=== PATIENT | female | born 1935 | race Two or more races ===

== ENCOUNTER 2016-09-19 21:53 | Emergency (ER) | payer MEDICARE, OTHER ==
[~2016-09-19] VITALS: Ht 160 cm; Wt 65.8 kg
[~2016-09-19 21:53] MED LIST: ACET-2605 PO; ACET-868 PO; ATOR10TA PO; BISA10SU8 RC; BUPR-96 PO; ESOM40CA PO; INSU3INS6 SQ; LISI40TA4 PO; LOPE2CAP40 PO; MAG30ORA PO; MAGN400O6 PO; POTA20TA83 PO
--- NOTE | 2016-09-19 22:00 | NUR ---
To bed 7 a 81 yo female bibra with c/o high blood pressure. Patient is aaox4, Bp upon arrival is 208/83, HR is 79, saturating well on room air at 99%. Denies headache/nausea/chest pain or any form of discomfort. Nondiaphoretic. healthcare liaison on. Gowned. Initiated comfort measures. Awaiting for er md hardy.
--- NOTE | 2016-09-19 22:02 | NUR ---
Dr Obrien at bedside for eval.
--- NOTE | 2016-09-19 22:17 | NUR ---
started asaline lock on left hand g20.
[2016-09-19] MEDS ORDERED: hydrALAZINE HCL IV 20 MG VIAL ONE ×2 (22:20→22:54)
[2016-09-19] MEDS ORDERED: hydrALAZINE HCL IV 20 MG VIAL IV ONE ×2 (22:30→23:00)
[2016-09-19 22:38] LABS: BASOPHILS # (AUTO) 0.1 /CMM (0.0-0.2); BASOPHILS % (AUTO) 0.6 % (0.0-2.0); EOSINOPHILS # (AUTO) 0.4 /CMM (0.0-0.7); EOSINOPHILS % (AUTO) 4.5 % (0.0-6.0); HEMATOCRIT 30 % (33-45); HEMOGLOBIN 10.1 g/dL (11.5-14.8); LYMPHOCYTES # (AUTO) 1.3 /CMM (0.8-4.8); LYMPHOCYTES % (AUTO) 12.9 % (20.0-44.0); MEAN CORPUSCULAR HEMOGLOBIN 32 PG (26.0-33.0); MEAN CORPUSCULAR HGB CONC 34 g/dl (31.0-36.0); MEAN CORPUSCULAR VOLUME 93 fL (82-100); MONOCYTES # (AUTO) 0.7 /CMM (0.1-1.30); MONOCYTES % (AUTO) 7.5 % (2.0-12.0); NEUTROPHILS # (AUTO) 7.4 /CMM (1.8-8.9); NEUTROPHILS % (AUTO) 74.5 % (43.0-81.0); PLATELET COUNT (AUTO) 186 /CMM (150-450); RDW COEFFICIENT OF VARIATION 14.1 (11.5-15.0); RED BLOOD CELL COUNT(AUTO) 3.19 MIL/uL (4.0-5.2)
[2016-09-19 22:51] LABS: CALCIUM, SERUM 8.8 mg/dL (8.5-10.1); CREATININE 6.1 mg/dL (0.6-1.3); POTASSIUM 4.6 mmol/L (3.5-5.1)
--- NOTE | 2016-09-20 00:13 | NUR ---
[facility] CALLED, ETA 1-1.5 HRS.
--- NOTE | 2016-09-20 01:24 | NUR ---
report given to paramedics for matteo, VSS. No further complaints.
[2016-09-20 01:32] VITALS: BP 170/74
== END 2016-09-20 01:33 ==
LOC: ER 21:55
DX: I10 Essential (primary) hypertension (principal); E11.9 Type 2 diabetes mellitus without complications; K21.9 Gastro-esophageal reflux disease without esophagitis; I12.0 Hypertensive chronic kidney disease with stage 5 chronic kidney disease or end stage renal disease; D64.9 Anemia, unspecified; N18.6 End stage renal disease; G47.30 Sleep apnea, unspecified; Z79.4 Long term (current) use of insulin; Z88.0 Allergy status to penicillin; Z99.2 Dependence on renal dialysis; Z88.6 Allergy status to analgesic agent
CPT/HCPCS: 36415; 80048; 85025; 96374; 96376; 99284; A4606; J0360 ×2; Z7610

== ENCOUNTER 2017-01-03 06:59 | Inpatient (IN) | payer MEDICARE, OTHER ==
[~2017-01-03] VITALS: Ht 162.6 cm; Wt 68.5 kg
[2017-01-03] VITALS (35 sets, daily range): BP systolic 138–232; BP diastolic 62–104
--- NOTE | 2017-01-03 07:00 | NUR ---
PT BIB RA FROM SNF "COUGH/SOB WITH LOW SATS OF 80'S RA"; CRACKLES ON BREATHING TX ELECTRICAL AND RADIO AIRCRAFT MECHANIC. PT DIALYSIS PT SCHEDULED FOR DIALYSIS TODAY. GOWNED PT. PLACED ON MONITOR. AWAITING MD ORDER.
--- NOTE | 2017-01-03 07:05 | NUR ---
PT HAS LEFT WRIST #20 IV ACCESS KINDERGARTNER. PT HAS [facility] SHUNT
--- NOTE | 2017-01-03 07:10 | NUR ---
LFA #18 IV ACCESS BLOOD SAMPLE COLLECTED SENT TO LAB
--- NOTE | 2017-01-03 07:15 | NUR ---
PT ON BIPAP 15 IPAP T=RATE 14 EPAP 5 O2 30 %
[2017-01-03] MEDS ORDERED: NTG 50 MG/D5W250 ML BOTTL 250 ML IV ONE ×2 (07:25→07:30)
[2017-01-03] MEDS ORDERED: FUROSEMIDE 20 MG/2 ML VIAL ONE (07:25)
[2017-01-03] MEDS ORDERED: MORPHINE SULFATE INJ 4 MG/ML DISP.SYRIN ONE (07:25)
[2017-01-03] MEDS ORDERED: FUROSEMIDE 40 MG/4 ML VIAL ONE (07:25)
[2017-01-03 07:26] LABS: BASOPHILS % (AUTO) 0.3 % (0.0-2.0); HEMATOCRIT 33 % (33-45); HEMOGLOBIN 10.9 g/dL (11.5-14.8); LYMPHOCYTES # (AUTO) 0.5 /CMM (0.8-4.8); LYMPHOCYTES % (AUTO) 3.8 % (20.0-44.0); MEAN CORPUSCULAR HEMOGLOBIN 31 PG (26.0-33.0); MEAN CORPUSCULAR HGB CONC 34 g/dl (31.0-36.0); MEAN CORPUSCULAR VOLUME 91 fL (82-100); MONOCYTES # (AUTO) 0.4 /CMM (0.1-1.30); MONOCYTES % (AUTO) 3.1 % (2.0-12.0); NEUTROPHILS # (AUTO) 11.6 /CMM (1.8-8.9); NEUTROPHILS % (AUTO) 92.8 % (43.0-81.0); PLATELET COUNT (AUTO) 209 /CMM (150-450); RDW COEFFICIENT OF VARIATION 16.7 (11.5-15.0); RED BLOOD CELL COUNT(AUTO) 3.57 MIL/uL (4.0-5.2); WHITE BLOOD COUNT (AUTO) 12.6 K/uL (4.3-11.0)
[2017-01-03] MEDS ORDERED: MORPHINE SULFATE INJ 2 MG/ML DISP.SYRIN IV ONE (07:30)
[2017-01-03] MEDS ORDERED: FUROSEMIDE 40 MG/4 ML VIAL IV ONE (07:30)
--- NOTE | 2017-01-03 07:32 | NUR ---
PT REC'D ON NEBULIZER MASK 6L. SOB NOTED. PT PLACED ON BIPAP ON NOTED SETTINGS PER MD REQUEST. ALARMS ARE SET AND AUDIBLE PER POLICY. BIPAP PLUGGED INTO RED OUTLET. AMBU BAG BEDSIDE. WILL CONTINUE TO MONITOR. Addendum: 01/03/17 at 0734 by JN BENJAMIN RT Amended: Links added.
[2017-01-03 07:49] LABS: ALANINE AMINOTRANSFERASE 21 U/L (12-78); ALBUMIN 3.4 g/dL (3.4-5.0); ALKALINE PHOSPHATASE 181 U/L (46-116); ASPARTATE AMINOTRANSFERASE 16 U/L (15-37); B-TYPE NATRIURETIC PEPTIDE 25952 PG/ML (0-125); BILIRUBIN,DIRECT 0.2 mg/dL (0.0-0.2); BILIRUBIN,TOTAL 0.6 mg/dL (0.2-1.0); CARBON DIOXIDE 25 mmol/L (21-32); CHLORIDE 103 mmol/L (98-107); CREATININE 6.2 mg/dL (0.6-1.3); GLUCOSE 250 mg/dL (74-106); SODIUM SERUM 136 mmol/L (136-145); TOTAL PROTEIN, SERUM 7.4 g/dL (6.4-8.2); UREA NITROGEN, BLOOD 44 mg/dL (7-18)
[2017-01-03 07:53] LABS: POTASSIUM 7.1 mmol/L (3.5-5.1)
[2017-01-03 08:01] LABS: ABG BASE EXCESS -3.3 mmol/L; ABG OXYGEN SATURATION 95.9 % (92.0-98.5); ABG PCO2 39.2 mmHg (35.0-45.0); ABG PH 7.363 (7.350-7.450); ABG PO2 91.9 mmHg (75.0-100.0); AaDO2 75.9 mmHg; MetHb 0.1 % (0.0-1.5); O2Hb 94.8 % (94.0-97.0); SITE, ABG Right Radial; VENT MODE, BG BIPAP 15/5 RR14 30%
--- NOTE | 2017-01-03 08:40 | NUR ---
DR PATEL ADMITTING MD AT BEDSIDE SEEING PT
--- NOTE | 2017-01-03 08:47 | NUR ---
PAGED DR QUEZADA FOR CONSULT
[2017-01-03] MEDS ORDERED: LISI10TA5 PO (09:06)
[2017-01-03] MEDS ORDERED: CALC0.253 PO (09:06)
[2017-01-03] MEDS ORDERED: ISOS30TA6 PO (09:06)
[2017-01-03] MEDS ORDERED: HYDR-4077 PO (09:06)
[2017-01-03] MEDS ORDERED: LOSA50TA21 PO (09:06)
[2017-01-03] MEDS ORDERED: INSU100I14 SQ (09:06)
[2017-01-03] MEDS ORDERED: NAPR220T66 PO (09:06)
[2017-01-03] MEDS ORDERED: SEVE800T8 PO (09:06)
--- NOTE | 2017-01-03 09:59 | NUR ---
GAVE REPORT TO CHAS MANRIQUEZ ICU ROOM [address] PATEL / DR QUEZADA. TRANSFER VIA ACLS PROTOCOL
[2017-01-03] MEDS ORDERED: ONDANSETRON HCL/PF 4 MG/2 ML VIAL IVP PRN (10:00)
[2017-01-03] MEDS ORDERED: MAG HYDROX/AL HYDROX/SIMETH 30 ML UDC PO PRN (10:00)
[2017-01-03] MEDS ORDERED: HYDROCODONE/APAP 5/325MG 1 EACH TABLET PO PRN (10:00)
[2017-01-03] MEDS ORDERED: INSULIN REGULAR, HUMAN 100 UNIT/ML 10 ML VIAL SQ ONE (10:00)
[2017-01-03] MEDS ORDERED: DEXTROSE 50%-WATER 50 ML DISP.SYRIN IV PRN (10:00)
[2017-01-03] MEDS ORDERED: *INSULIN REGULAR(HUMULIN R)HUM 100 UNIT/ML VIAL SQ PRN (10:00)
[2017-01-03] MEDS ORDERED: MORPHINE SULFATE INJ 2 MG/ML DISP.SYRIN IV PRN (10:00)
[2017-01-03] MEDS ORDERED: ACETAMINOPHEN 325 MG TABLET PO PRN (10:00)
[2017-01-03] MEDS ORDERED: ZOLPIDEM TARTRATE 5 MG TABLET PO PRN (10:00)
[2017-01-03] MEDS ORDERED: Z GUARD REMEDY 2 OZ OINT TP PRN (10:00)
[2017-01-03] MEDS ORDERED: DEXTROSE 50%-WATER 50 ML DISP.SYRIN IVP ONE (10:00)
--- NOTE | 2017-01-03 10:20 | NUR ---
FLORICULTURE TEACHER RECEIVED PATIENT FROM THE ER ON A GURNEY. 4 PERSON ASSIST BED TRANSFER. PATIENT IS ALERT AND AWAKE. ON 2L NASAL CANNULA. DENIES SOB. DENIES CHEST PAIN. AFEBRILE. SINUS RHYTHM ON MONITOR. BP CLOSELY MONITORED. FAMILY AT BEDSIDE. WILL CONTINUE TO MONITOR AND PROVIDE CARE.
[2017-01-03 10:40] LABS: TROPONIN I 0.037 ng/mL (0.00-0.056)
[2017-01-03] MEDS ORDERED: ALBUTEROL FS 2.5 MG/0.5 ML VIAL.NEB NEB ONE (10:59)
[2017-01-03] MEDS ORDERED: Calcium Gluconate 1GM/10ML 4.65 MEQ in IV D5W 50 ML IV ONE (11:30)
[2017-01-03] MEDS: CALCITRIOL 0.25 MCG CAPSULE PO SCH (11:32)
[2017-01-03] MEDS: BLOOD SUGAR DIAGNOSTIC 1 EACH STRIP VI SCH ×3 (11:53→21:42)
[2017-01-03] MEDS: INSULIN REGULAR, HUMAN 100 UNIT/ML 3 ML VIAL SQ PRN (11:56)
[2017-01-03] MEDS ORDERED: LEVOFLOXACIN 750 MG /D5W 150ML 750 MG in PREMIX 1 EA IV ONE (12:00)
[2017-01-03] MEDS: hydrALAZINE HCL 50 MG TABLET PO SCH ×2 (13:13→17:48)
[2017-01-03] MEDS: SEVELAMER CARBONATE 800 MG TABLET PO SCH ×2 (13:13→17:48)
[2017-01-03] MEDS: Z GUARD REMEDY 2 OZ OINT TP SCH (13:21)
[2017-01-03 14:14] LABS: ABG BASE EXCESS 6.1 mmol/L; ABG OXYGEN SATURATION 94.9 % (92.0-98.5); ABG PCO2 39.1 mmHg (35.0-45.0); ABG PH 7.499 (7.350-7.450); ABG PO2 75.7 mmHg (75.0-100.0); AaDO2 77.8 mmHg; COHb 0.5 % (0.5-1.5); MetHb 0.3 % (0.0-1.5); O2Hb 94.1 % (94.0-97.0); SITE, ABG Left Radial; VENT MODE, BG NASAL CANNULA
--- NOTE | 2017-01-03 20:00 | NUR ---
HEDGE FUND ACCOUNTANT NOTES RECEIVED PT IN BED, AWAKE. A/OX4. TELE READS SR AT 67 BPM. ON O2 VIA NC AT 2LPM, TYRONE WELL. FLORENCE AV SHUNT PRESENT. LEFT WRIST 20G AND LEFT FOREARM 18G PIV, RUNNING NS AT TKO. PT HAD HD DONE TODAY WITH 2300ML OUTPUT. PT DENIES PAIN. ON RENAL DIET. KCI MATTRESS IN PLACE. SIDE RAILS X2. PT TURNED AND REPOSITIONED.
--- NOTE | 2017-01-03 21:14 | NUR ---
BAKERY TEAM MEMBER NOTES CONTACTED DR BURROUGHS FOR PULMONARY CLEARANCE TO DOWNGRADE PT OUT OF ICU. PER MD, OKAY TO TRANSFER TO [facility] IF POTASSIUM IS LOWER. STAT BMP ORDERED.
[2017-01-03] MEDS: ATORVASTATIN 10 MG TABLET PO SCH (21:43)
[2017-01-03 21:50] LABS: CALCIUM, SERUM 8.6 mg/dL (8.5-10.1); CARBON DIOXIDE 31 mmol/L (21-32); CHLORIDE 101 mmol/L (98-107); CREATININE 4.6 mg/dL (0.6-1.3); GLUCOSE 104 mg/dL (74-106); POTASSIUM 5.3 mmol/L (3.5-5.1); SODIUM SERUM 138 mmol/L (136-145); UREA NITROGEN, BLOOD 29 mg/dL (7-18)
[2017-01-03] MEDS ORDERED: MAGNESIUM HYDROXIDE 30 ML UDC PO PRN (22:00)
[2017-01-03] MEDS ORDERED: CLONIDINE HCL 0.1 MG TABLET PO PRN (23:00)
--- NOTE | 2017-01-03 23:05 | NUR ---
CATHEAD OPERATOR NOTES PT'S POTASSIUM IS 5.3. DR DIAZ CONTACTED AND MADE AWARE. ORDER RECEIVED TO TRANSFER TO [facility]. PT'S BLOOD PRESSURE IS ELEVATED AND CONTINUES TO RISE. MADE AWARE, CLONIDINE PRN ORDERED.
[2017-01-03] MEDS ORDERED: CLONIDINE HCL 0.1 MG TABLET ONE (23:21)
--- NOTE | 2017-01-03 23:47 | NUR ---
POST MANAGER NOTES PT TRANSFERRED TO [facility] ROOM 113-1 WITH 2 RNs. PT PLACED ON TRANSPORT MONITOR AND O2 TANK. STABLE DURING TRANSFER.
--- NOTE | 2017-01-03 23:50 | NUR ---
[facility] RN RECEIEVED PT FROM ICU TRANSFER. A/O X 4, NO SOB, NO DISTRESS OR DISCOMFORT NOTED. DENIES PAIN. AV SHUT INTACT. HL IN LT WRIST #20 G AND LFA # 18 G INTACT AND PATENT WITH NS TKO. NO S/S OF INFILTRATION NOTED. ON TELE SR 62. ALL NEEDS ATTENDED. SIDE RAILS UP X 3 AND CALL LIGHT WITH IN REACH. CONTINUE TO MONITOR HER.
[2017-01-04] VITALS: BP 127/51
[2017-01-04 04:00] VITALS: BP_SYST 114; BP_SYST 118; BP_DIAS 54; BP_DIAS 62
[2017-01-04] MEDS: BLOOD SUGAR DIAGNOSTIC 1 EACH STRIP VI SCH ×4 (05:48→21:21)
--- NOTE | 2017-01-04 06:37 | NUR ---
[facility] RN NOTE PT IN BED ASLEEP, NO DISTRESS OR DISCOMFORT NOTED. DENIES PAIN. KEPT HER DRY AND CLEAN. ON TELE SB 54. ALL NEEDS ATTENDED. SIDE RAILS UP X 3 AND CALL LIGHT WITHIN REACH. WILL ENDORSE TO DAYS SHIFT NURSE FOR CONTINUE TO CARE.
[2017-01-04 07:51] LABS: ALANINE AMINOTRANSFERASE 17 U/L (12-78); ALBUMIN 2.6 g/dL (3.4-5.0); ALKALINE PHOSPHATASE 127 U/L (46-116); ASPARTATE AMINOTRANSFERASE 14 U/L (15-37); BASOPHILS % (AUTO) 0.7 % (0.0-2.0); BILIRUBIN,TOTAL 0.5 mg/dL (0.2-1.0); CALCIUM, SERUM 8.7 mg/dL (8.5-10.1); CARBON DIOXIDE 31 mmol/L (21-32); CHLORIDE 102 mmol/L (98-107); CREATININE 5.1 mg/dL (0.6-1.3); EOSINOPHILS # (AUTO) 0.1 /CMM (0.0-0.7); EOSINOPHILS % (AUTO) 1.9 % (0.0-6.0); GLUCOSE 97 mg/dL (74-106); HEMATOCRIT 28 % (33-45); HEMOGLOBIN 9.3 g/dL (11.5-14.8); INR 1.06 (0.87-1.13); LYMPHOCYTES # (AUTO) 0.9 /CMM (0.8-4.8); LYMPHOCYTES % (AUTO) 14.2 % (20.0-44.0); MAGNESIUM 1.7 mg/dL (1.8-2.4); MEAN CORPUSCULAR HEMOGLOBIN 30 PG (26.0-33.0); MEAN CORPUSCULAR HGB CONC 33 g/dl (31.0-36.0); MEAN CORPUSCULAR VOLUME 91 fL (82-100); MONOCYTES # (AUTO) 0.6 /CMM (0.1-1.30); MONOCYTES % (AUTO) 9.2 % (2.0-12.0); NEUTROPHILS # (AUTO) 4.6 /CMM (1.8-8.9); PHOSPHORUS 4.5 mg/dL (2.5-4.9); PLATELET COUNT (AUTO) 162 /CMM (150-450); POTASSIUM 5.9 mmol/L (3.5-5.1); PROTHROMBIN TIME 11.4 SECS (9.5-12.7); RDW COEFFICIENT OF VARIATION 16.4 (11.5-15.0); RED BLOOD CELL COUNT(AUTO) 3.08 MIL/uL (4.0-5.2); SODIUM SERUM 137 mmol/L (136-145); TOTAL PROTEIN, SERUM 5.9 g/dL (6.4-8.2); UREA NITROGEN, BLOOD 32 mg/dL (7-18); WHITE BLOOD COUNT (AUTO) 6.2 K/uL (4.3-11.0)
[2017-01-04 07:55] LABS: IRON, SERUM 55 ug/dl (50-175); TOTAL IRON BINDING CAPACITY 155 ug/dl (250-450)
[2017-01-04 08:00] VITALS: BP 114/70
--- NOTE | 2017-01-04 08:00 | NUR ---
[facility]/RN INITIAL NOTES,AM RECEIVED REPORT FROM NIGHT NURSE FOR CONTINUATION OF CARE. PT RESTING IN BED. PT ALERT, AWAKE, ORIENTED. ON NASAL CANULA, NO DISTRESS. PT SINUS RAMÓN ON TELE. SCHEDULED FOR H.D TODAY, PT ANURIC. PIV PATENT AND INTACT. NO S/S IF INFECTION OR INFILTRATION NOTED. ALL NEEDS WILL BE MET, SAFETY MEASURES TAKEN, BED IN LOW POSITION SIDE RAILS UP, CALL LIGHT WITHIN REACH.
[2017-01-04 08:03] LABS: CHOLESTEROL 98 mg/dL (<200); HDL CHOLESTEROL 54 mg/dL (40-60); LDL 38 mg/dL (0-99); PREALBUMIN 17.2 MG/DL (18.0-35.7); THYROID STIMULATING HORMONE 1.871 uIU/mL (0.358-3.74); TRIGLYCERIDES 52 mg/dL (30-150)
[2017-01-04] MEDS: CALCITRIOL 0.25 MCG CAPSULE PO SCH (08:18)
[2017-01-04] MEDS: BUPROPION XL 150 MG TAB.ER.24 PO SCH (08:18)
[2017-01-04] MEDS: SEVELAMER CARBONATE 800 MG TABLET PO SCH ×3 (08:19→18:42)
[2017-01-04] MEDS: PANTOPRAZOLE 40 MG TABLET.DR PO SCH (08:19)
[2017-01-04] MEDS: Z GUARD REMEDY 2 OZ OINT TP SCH (08:25)
[2017-01-04] MEDS: ISOSORBIDE MONONITRATE (30MG) 30 MG TAB.SR.24H PO SCH (08:26)
[2017-01-04] MEDS: INSULIN DETEMIR 100 UNIT/ML CARTRIDGE SQ SCH (08:32)
[2017-01-04] MEDS: hydrALAZINE HCL 50 MG TABLET PO SCH ×3 (09:00→16:31)
[2017-01-04 12:00] VITALS: BP 131/62
[2017-01-04] MEDS ORDERED: LEVOFLOXACIN 500 MG /D5W 100ML 500 MG in PREMIX 1 EA IV SCH (12:00)
[2017-01-04 16:00] VITALS: BP 153/70
--- NOTE | 2017-01-04 16:00 | NUR ---
[facility]/RN: HD DONE, 2 LITERS OUT, TOLERATED WELL. VSS
--- NOTE | 2017-01-04 19:05 | NUR ---
[facility]/RN: ENDING NOTES,AM REPORT WILL BE ENDORSED TO NIGHT NURSE FOR CONTINUATION OF CARE. ALL NEEDS MET. NO DISTRESS. SON OF PT IN ROOM.
--- NOTE | 2017-01-04 19:30 | NUR ---
RN OPENING NOTES: RECEIVED PT ON BED AWAKE ALOX4 AND VERBALLY RESPONSIVE, ABLE TO MAKE NEEDS KNOWN. ON ROOM AIR, NOT IN APPARENT DISTRESS. SINUS RAMÓN ON MONITOR HR AT 58 BPM. IV ACCESS ON LEFT FOREARM G18 PATENT AND INTACT, SL AT THIS TIME. FLORENCE AV SHUNT WITH BRUITS AND THRILLS NOTED, NO BLEEDING NOR SWELLING AROUND THE SITE. SAFETY MEASURES ENSURED. BED ALARM ON. CALL LIGHT WITHIN REACH. MONITORED PATIENT CONTINUOUSLY.
[2017-01-04 20:00] VITALS: BP 141/46
[2017-01-04] MEDS: ATORVASTATIN 10 MG TABLET PO SCH (21:16)
[2017-01-05] VITALS: BP 159/54
--- NOTE | 2017-01-05 03:30 | NUR ---
RN NOTES: NOTED PATIENT AWAKE AT THIS TIME. INFORMED PATIENT SHE IS REQUIRED OF URINE SPECIMEN. INFORMED PATIENT A STRAIGHT CATHETERIZATION IS REQUIRED TO OBTAIN URINE SPECIMEN. PATIENT REFUSED.MADE AWARE OF RISKS AND BENEFITS, TO NO AVAIL. PATIENT STILL REFUSING. ASKED IF SHE IS ABLE TO PROVIDE FOR ONE OR CALL IF SHE WILL URINATE. PATIENT AGREED AND SAID WILL TRY. TO MONITOR PATIENT.
[2017-01-05 04:00] VITALS: BP 157/61
[2017-01-05] MEDS: BLOOD SUGAR DIAGNOSTIC 1 EACH STRIP VI SCH ×2 (06:55→12:09)
--- NOTE | 2017-01-05 07:14 | NUR ---
RN CLOSING NOTES: PATIENT NOT IN DISTRESS IN BED AT THIS TIME. REMAINED SR- SB HR AT 50'S- 60'S. IV ACCESS INTACT KEPT SL. SAFETY MEASURES ENSURED. SKIN CARE RENDERED. CONTINUOUSLY MONITORED. ENDORSED TO AM SHIFT RN.
[2017-01-05 07:21] LABS: BASOPHILS % (AUTO) 0.4 % (0.0-2.0); EOSINOPHILS # (AUTO) 0.2 /CMM (0.0-0.7); HEMATOCRIT 30 % (33-45); HEMOGLOBIN 9.9 g/dL (11.5-14.8); LYMPHOCYTES # (AUTO) 1.1 /CMM (0.8-4.8); LYMPHOCYTES % (AUTO) 16.8 % (20.0-44.0); MEAN CORPUSCULAR HEMOGLOBIN 31 PG (26.0-33.0); MEAN CORPUSCULAR HGB CONC 33 g/dl (31.0-36.0); MEAN CORPUSCULAR VOLUME 92 fL (82-100); MONOCYTES # (AUTO) 0.7 /CMM (0.1-1.30); NEUTROPHILS # (AUTO) 4.4 /CMM (1.8-8.9); NEUTROPHILS % (AUTO) 68.8 % (43.0-81.0); PLATELET COUNT (AUTO) 161 /CMM (150-450); RDW COEFFICIENT OF VARIATION 16.1 (11.5-15.0); RED BLOOD CELL COUNT(AUTO) 3.23 MIL/uL (4.0-5.2); WHITE BLOOD COUNT (AUTO) 6.4 K/uL (4.3-11.0)
--- NOTE | 2017-01-05 07:30 | NUR ---
[facility] RN NOTE: RECEIVED PATIENT A&OX3. PT ON O2 2L VIA NC WITH NO RESPIRATORY DISTRESS OR SOB NOTED. FLORENCE AV SHUNT. LFA G 18 PATENT AND INTACT. ON TELE SB HR 59. DENIES PAIN. CARE PLAN REVIEWED WITH PATIENT. BED LOW, LOCKED WITH CALL LIGHT WITHIN REACH. ALL NEEDS MET AND ANTICIPATED. WILL CONT TO MONITOR.
[2017-01-05 07:45] LABS: ALANINE AMINOTRANSFERASE 18 U/L (12-78); ALBUMIN 2.6 g/dL (3.4-5.0); ALKALINE PHOSPHATASE 133 U/L (46-116); ASPARTATE AMINOTRANSFERASE 12 U/L (15-37); BILIRUBIN,TOTAL 0.4 mg/dL (0.2-1.0); CALCIUM, SERUM 8.9 mg/dL (8.5-10.1); CARBON DIOXIDE 32 mmol/L (21-32); CHLORIDE 101 mmol/L (98-107); CREATININE 4.8 mg/dL (0.6-1.3); GLUCOSE 80 mg/dL (74-106); MAGNESIUM 1.8 mg/dL (1.8-2.4); PHOSPHORUS 4.6 mg/dL (2.5-4.9); POTASSIUM 5.2 mmol/L (3.5-5.1); SODIUM SERUM 137 mmol/L (136-145); UREA NITROGEN, BLOOD 34 mg/dL (7-18)
[2017-01-05 08:00] VITALS: BP 147/49
--- NOTE | 2017-01-05 08:00 | NUR ---
[facility] RN NOTE: DIALYSIS NURSE AT BEDSIDE. MORNING MEDICATIONS HELD.
--- NOTE | 2017-01-05 09:07 | NUR ---
GLOBAL CHIEF CREATIVE OFFICER ATTEMPTED TO SEE PATIENT FOR WOUND CONSULT AND PATIENT CURRENTLY HAVING DIALYSIS. WILL SEE AT LATER TIME WHEN PATIENT CONDITION PERMITS.
[2017-01-05] MEDS: SEVELAMER CARBONATE 800 MG TABLET PO SCH ×2 (11:54→15:30)
[2017-01-05] MEDS: Z GUARD REMEDY 2 OZ OINT TP SCH (11:54)
[2017-01-05] MEDS: BUPROPION XL 150 MG TAB.ER.24 PO SCH (11:54)
[2017-01-05] MEDS: CALCITRIOL 0.25 MCG CAPSULE PO SCH (11:55)
[2017-01-05] MEDS: PANTOPRAZOLE 40 MG TABLET.DR PO SCH (11:55)
[2017-01-05] MEDS: ISOSORBIDE MONONITRATE (30MG) 30 MG TAB.SR.24H PO SCH (11:55)
[2017-01-05] MEDS: hydrALAZINE HCL 50 MG TABLET PO SCH ×2 (11:56→15:30)
[2017-01-05] MEDS ORDERED: LEVO750T21 PO (11:59)
[2017-01-05 12:00] VITALS: BP 132/72
--- NOTE | 2017-01-05 12:12 | NUR ---
WOUND CARE CONSULT PATIENT SEEN AND SKIN INTEGRITY ASSESSMENT DONE. PATIENT PRESENTS WITH INTACT SKIN WITH BLANCHABLE REDNESS TO THE SACRAL REGION. PATIENT NOTED TO HAVE DRY SCAB TO THE LEFT LAT ANKLE WHICH PATIENT STATES SHE "BUMPED ON THE SIDE OF THE BED". PATIENT IS ABLE TO MOVE ALL EXTREMITIES, PERFORM LEG AND HEEL LIFTS AND IS ABLE TO ASSIST WITH BED MOBILITY AT THIS TIME. PATIENT HAS OCC INCONT AND THERE ARE ORDERS FOR MOISTURE BARRIER NEEDED. CONTINUE ALL PRESSURE ULCER PREVENTION MEASURES PER CURRENT PLAN OF CARE. WILL SEE PRN. Addendum: 01/05/17 at 1216 by XIOMARA MOY WNDNU Amended: Links added.
[2017-01-05] MEDS: INSULIN DETEMIR 100 UNIT/ML CARTRIDGE SQ SCH (12:15)
[2017-01-05] MEDS: INSULIN REGULAR, HUMAN 100 UNIT/ML 3 ML VIAL SQ PRN (12:16)
[2017-01-05 16:00] VITALS: BP 130/65
--- NOTE | 2017-01-05 16:35 | NUR ---
RN NOTES PT DISCHARGED FROM UNIT IN STABLE CONDITION. VS STABLE. ALL DISCHARGE INSTRUCTIONS GIVEN, EXITCARE PROVIDED. PT VERBALIZED UNDERSTANDING. PT ATTEMPTED TO SIGN PAPERWORK BUT SHE COULDN'T SIGN. PAPERWORK SIGNED BY 2 RN. IV LINE ON R FA REMOVED, PRESSURE APPLIED COVERED WITH CLEAN DRY DRESSING, ID BAND REMOVED.
== END 2017-01-05 14:25 | disposition home health service (06) | DRG 177 ==
LOC: ER 07:01 → ICU 09:58 → TELE-TD 23:39
PROVIDERS: ADMIT Internal Medicine; ATTEND Internal Medicine
PROC: 5A1D60Z (ICD-10-PCS; principal; 2017-01-03)
DX: J69.0 Pneumonitis due to inhalation of food and vomit (principal); J96.01 Acute respiratory failure with hypoxia; R53.2 Functional quadriplegia; N18.6 End stage renal disease; I50.23 Acute on chronic systolic (congestive) heart failure; I13.2 Hypertensive heart and chronic kidney disease with heart failure and with stage 5 chronic kidney disease, or end stage renal disease; E44.0 Moderate protein-calorie malnutrition; Z99.2 Dependence on renal dialysis; G35 Multiple sclerosis; G47.30 Sleep apnea, unspecified; K21.9 Gastro-esophageal reflux disease without esophagitis; E11.9 Type 2 diabetes mellitus without complications; Z88.0 Allergy status to penicillin; Z88.8 Allergy status to other drugs, medicaments and biological substances; D63.1 Anemia in chronic kidney disease; E11.21 Type 2 diabetes mellitus with diabetic nephropathy; E11.22 Type 2 diabetes mellitus with diabetic chronic kidney disease; E66.9 Obesity, unspecified; E78.5 Hyperlipidemia, unspecified; E87.5 Hyperkalemia; I34.0 Nonrheumatic mitral (valve) insufficiency; K59.00 Constipation, unspecified; Z79.899 Other long term (current) drug therapy; Z83.3 Family history of diabetes mellitus; Z87.891 Personal history of nicotine dependence
CPT/HCPCS: 36415; 36600; 71010-TC; 80048-TC; 80053-TC; 80061-TC; 80076-TC; 82150-TC; 82553-TC; 82746; 82803-TC; 82962-TC; 83540-TC; 83690-TC; 83735-TC; 83880; 84100-TC; 84134-TC; 84443-TC; 84484-TC; 85025-TC; 85730-TC; 87040-TC; 87081-TC; 90935-TC; 93307-TC; 97001-TC; A4216; A4606; A6402; A6403; J0610; J1815; J1940; J1956; J2270; J3490; J7050; J7060; Z7610

== ENCOUNTER 2017-05-28 18:45 | Emergency (ER) | payer MEDICARE, OTHER ==
[~2017-05-28] VITALS: Ht 165.1 cm; Wt 56.7 kg
[~2017-05-28 18:45] MED LIST changes: -ACET-2605 PO; -ACET-868 PO; -BISA10SU8 RC; +CALC0.253 PO; +HYDR-4077 PO; +INSU100I14 SQ; +ISOS30TA6 PO; +LEVO750T21 PO; +LISI10TA5 PO; -LISI40TA4 PO; -LOPE2CAP40 PO; +LOSA50TA21 PO; -MAG30ORA PO; -MAGN400O6 PO; -POTA20TA83 PO; +SEVE800T8 PO
--- NOTE | 2017-05-28 18:55 | NUR ---
PRESENTS TO ER C/O FACIAL PAIN AND BRUISING S/P TRIP AND FALL THIS AFTERNOON. DENIES LOC, NECK, OR BACK PAIN. A/OX 4. BREATHING EVEN AND UNLABORED. NO SOB. VITALS STABLE. SAFETY AND COMFORT MEASURES IN PLACE. AWAITING MD ORDERS.
--- NOTE | 2017-05-28 19:14 | NUR ---
PATIENT TAKEN TO CT VIA STRETCHER. REPORT GIVEN TO IRIS MANRIQUEZ FOR NICK.
--- NOTE | 2017-05-28 19:15 | NUR ---
REPORT RECEIVED FROM MITRA PATEL FOR NICK.
--- NOTE | 2017-05-28 21:28 | NUR ---
Patient discharged to home in stable condition. Written and verbal after care instructions given. Patient verbalizes understanding of instruction. Discharged by w/c with son.
[2017-05-28 21:29] VITALS: BP 155/72
== END 2017-05-28 21:30 | disposition home or self-care (01) ==
LOC: ER 18:47
DX: S00.83XA Contusion of other part of head, initial encounter (principal); I10 Essential (primary) hypertension; K21.9 Gastro-esophageal reflux disease without esophagitis; E11.9 Type 2 diabetes mellitus without complications; G35 Multiple sclerosis; Z88.0 Allergy status to penicillin; Z88.8 Allergy status to other drugs, medicaments and biological substances; Z91.013 Allergy to seafood; Z79.4 Long term (current) use of insulin; W17.89XA Other fall from one level to another, initial encounter; Y93.89 Activity, other specified; Y92.89 Other specified places as the place of occurrence of the external cause; Y99.8 Other external cause status
CPT/HCPCS: 70450; 70486; 72125; 99284; A4606; Z7610

== ENCOUNTER 2017-06-02 15:33 | Inpatient (IN) | payer MEDICARE, OTHER ==
[~2017-06-02] VITALS: Ht 167.6 cm; Wt 65.3 kg
--- NOTE | 2017-06-02 15:37 | NUR ---
PT TO ER BED 09 VIA WHEELCHAIR. HERE FOR SOB, COUGH AND CONGESTION X 1 WEEK NOW. GOWNED AND PLACED ON MONITOR. PRESENTS W/ FACIAL BRUISING S/P FALL LAST MONDAY. PT IS DIALYSIS PT. LAST DIALYZED, MONDAY. [facility] ACCESS NOTED. AWAITING MD MANN.
--- NOTE | 2017-06-02 16:06 | NUR ---
DR RIDLEY AT BEDSIDE FOR EVAL.
--- NOTE | 2017-06-02 16:18 | NUR ---
IV LINE STARTED BLOOD DRAWN AND SENT TO LAB.
--- NOTE | 2017-06-02 16:21 | NUR ---
called rt for breathing tx
[2017-06-02] MEDS ORDERED: methylPREDNISolone SOD SUCC 125 MG/2ML VIAL ONE (16:22)
[2017-06-02 16:25] LABS: BASOPHILS % (AUTO) 0.3 % (0.0-2.0); EOSINOPHILS % (AUTO) 0.2 % (0.0-6.0); HEMATOCRIT 33 % (33-45); HEMOGLOBIN 11.6 g/dL (11.5-14.8); LYMPHOCYTES # (AUTO) 0.8 /CMM (0.8-4.8); LYMPHOCYTES % (AUTO) 7.3 % (20.0-44.0); MEAN CORPUSCULAR HEMOGLOBIN 31 PG (26.0-33.0); MEAN CORPUSCULAR HGB CONC 35 g/dl (31.0-36.0); MEAN CORPUSCULAR VOLUME 89 fL (82-100); MONOCYTES # (AUTO) 0.8 /CMM (0.1-1.30); MONOCYTES % (AUTO) 7.9 % (2.0-12.0); NEUTROPHILS # (AUTO) 8.8 /CMM (1.8-8.9); NEUTROPHILS % (AUTO) 84.3 % (43.0-81.0); PLATELET COUNT (AUTO) 221 /CMM (150-450); RDW COEFFICIENT OF VARIATION 14.8 (11.5-15.0); RED BLOOD CELL COUNT(AUTO) 3.76 MIL/uL (4.0-5.2); WHITE BLOOD COUNT (AUTO) 10.4 K/uL (4.3-11.0)
[2017-06-02] MEDS ORDERED: ALBUTEROL FS 2.5 MG/3 ML VIAL.NEB CONTNEB ONE (16:30)
[2017-06-02] MEDS ORDERED: methylPREDNISolone SOD SUCC 125 MG/2ML VIAL IV ONE (16:30)
[2017-06-02] MEDS ORDERED: IV NS 0.9% 1,000 ML BAG IV ONE (16:30)
[2017-06-02] MEDS ORDERED: IPRATROPIUM NEB FS 0.5 MG/2.5 ML AMPUL.NEB NEB ONE (16:30)
[2017-06-02] MEDS ORDERED: CEFTRIAXONE 1GM BAG (ER ONLY) 50 ML IV ONE (16:30)
[2017-06-02] MEDS ORDERED: ALBUTEROL FS 2.5 MG/3 ML VIAL.NEB ONE (16:32)
[2017-06-02] MEDS ORDERED: IPRATROPIUM NEB FS 0.5 MG/2.5 ML AMPUL.NEB ONE (16:32)
[2017-06-02 16:36] LABS: CALCIUM, SERUM 9.4 mg/dL (8.5-10.1); CARBON DIOXIDE 25 mmol/L (21-32); CHLORIDE 102 mmol/L (98-107); CREATININE 4.7 mg/dL (0.6-1.3); GLUCOSE 112 mg/dL (74-106); POTASSIUM 4.6 mmol/L (3.5-5.1); SODIUM SERUM 137 mmol/L (136-145); UREA NITROGEN, BLOOD 32 mg/dL (7-18)
[2017-06-02 16:41] LABS: TROPONIN I 0.025 ng/mL (0.00-0.056)
--- NOTE | 2017-06-02 16:43 | NUR ---
RT AT BEDSIDE FOR BREATHING TREATMENT.
[2017-06-02] MEDS: AZITHROMYCIN 500 MG in IV D5W 250 ML IV ONE ×2 (16:45→17:30)
[2017-06-02 16:49] LABS: ALANINE AMINOTRANSFERASE 24 U/L (12-78); ALBUMIN 3.3 g/dL (3.4-5.0); ALKALINE PHOSPHATASE 173 U/L (46-116); ASPARTATE AMINOTRANSFERASE 32 U/L (15-37); B-TYPE NATRIURETIC PEPTIDE 18682 PG/ML (0-125); BILIRUBIN,DIRECT 0.2 mg/dL (0.0-0.2); BILIRUBIN,TOTAL 0.9 mg/dL (0.2-1.0); TOTAL PROTEIN, SERUM 7.6 g/dL (6.4-8.2)
[2017-06-02] MEDS ORDERED: FUROSEMIDE 40 MG/4 ML VIAL ONE (17:21)
[2017-06-02] MEDS ORDERED: FUROSEMIDE 40 MG/4 ML VIAL IV ONE (17:30)
[2017-06-02] MEDS ORDERED: AMLO10TA2 PO (18:50)
[2017-06-02] MEDS ORDERED: FOLI0.8T23 PO (18:50)
[2017-06-02] MEDS ORDERED: GUAI100S94 PO (18:50)
[2017-06-02] MEDS ORDERED: HYDROCODONE/APAP 5/325MG 1 EACH TABLET PO PRN (19:30)
[2017-06-02] MEDS ORDERED: DEXTROSE 50%-WATER 50 ML DISP.SYRIN IV PRN (19:30)
[2017-06-02] MEDS ORDERED: AZITHROMYCIN 500 MG in IV D5W 250 ML IV SCH (19:30)
[2017-06-02] MEDS ORDERED: MAGNESIUM HYDROXIDE 30 ML UDC PO PRN (19:30)
[2017-06-02] MEDS ORDERED: Z GUARD REMEDY 2 OZ OINT TP PRN (19:30)
[2017-06-02] MEDS ORDERED: GUAIFENESIN 300 MG/15 ML UDC PO PRN (19:30)
[2017-06-02] MEDS ORDERED: MAG HYDROX/AL HYDROX/SIMETH 30 ML UDC PO PRN (19:30)
[2017-06-02] MEDS ORDERED: ONDANSETRON HCL/PF 4 MG/2 ML VIAL IVP PRN (19:30)
[2017-06-02] MEDS ORDERED: ACETAMINOPHEN 325 MG TABLET PO PRN (19:30)
[2017-06-02] MEDS ORDERED: CEFTRIAXONE 1 G in IV D5W 50 ML IV SCH (19:30)
[2017-06-02 21:05] VITALS: BP 159/70
--- NOTE | 2017-06-02 21:05 | NUR ---
TRAVEL COUNSELOR AUTOMOBILE CLUB OPENING NOTES: RECEIVED FROM ED IN [facility]. PT IS A/OX3. PT DENYING ANY PAIN AT THIS TIME. NO SOB NOTED. NO S/S OF DISTRESS NOTED AT THIS TIME. PT ON 2LPM VIA NC AND IS TOLERATING WELL. HOB SEMI FOWLERS. PT HAS L AC #20G AND IS PATENT AND INTACT. HAS BEEN FLUSHED. PT CURRENTLY S/L. ALSO NOTED FLORENCE AV SHUNT. CALL LIGHT WITHIN PT'S REACH. BED KEPT IN LOW, LOCKED POSITION, AND SIDE RAILS X 2UP. WILL CONTINUE TO MONITOR PT.
--- NOTE | 2017-06-02 21:11 | NUR ---
REPORT GIVEN TO . PT AWAITING TERANSFER TO FLOOR.
[2017-06-02 21:30] VITALS: BP 159/70
--- NOTE | 2017-06-02 21:59 | NUR ---
REGIONAL [employer] COMPANY DRIVER NOTES: WILL NON ADMIN ZITHROMAX AND ROCEPHIN. WAS ALREADY GIVEN IN ER.
[2017-06-02] MEDS: BLOOD SUGAR DIAGNOSTIC 1 EACH STRIP IN SCH (22:30)
[2017-06-02] MEDS ORDERED: INSULIN REGULAR, HUMAN 100 UNIT/ML 3 ML VIAL ONE (23:05)
--- NOTE | 2017-06-02 23:19 | NUR ---
DELIMER NOTES: AWAITING FOR INSULIN FROM [employer]UST[employer] GAS FITTER.
[2017-06-02] MEDS: INSULIN REGULAR, HUMAN 100 UNIT/ML 3 ML VIAL SQ PRN (23:35)
--- NOTE | 2017-06-02 23:35 | NUR ---
MANAGER MOTOR NOTES: INSULIN WAS OVERRIDDEN BY AUTOMOTIVE GENERAL SALES MANAGER. HAD TO MANUALLY ADMINISTER INSULIN. THAO WOULD NOT SCAN PROPERLY.
--- NOTE | 2017-06-02 23:40 | NUR ---
BARREL REAMER NOTES: BLOOD SUGAR WAS 391. 10 UNITS OF INSULIN WAS ADMINISTERED. WILL CONTINUE TO MONITOR PT.
[2017-06-03] MEDS ORDERED: ALBUTEROL FS 2.5 MG/0.5 ML VIAL.NEB ONE (01:05)
[2017-06-03] MEDS ORDERED: IPRATROPIUM NEB FS 0.5 MG/2.5 ML AMPUL.NEB ONE (01:05)
[2017-06-03] MEDS: IPRATROPIUM NEB FS 0.5 MG/2.5 ML AMPUL.NEB NEB SCH ×3 (01:07→19:39)
[2017-06-03] MEDS: ALBUTEROL FS 2.5 MG/0.5 ML VIAL.NEB NEB SCH ×4 (01:07→19:40)
--- NOTE | 2017-06-03 02:01 | NUR ---
E COMMERCE DIRECTOR NOTES: PT REFUSING TO BE CHANGED. PT ALSO BEING PHYSICALLY COMBATIVE. PT REFUSING TO HAVE GRAHAM AREA AND BUTTOCKS AREA CHECKED. PT KEEPS SAYING NO AND LEAVE ME ALONE. PT ALSO REMOVING HER NASAL CANNULA AND REMOVING HER LEADS OFF. WILL TRY AGAIN AT ANOTHER TIME.
--- NOTE | 2017-06-03 04:43 | NUR ---
TALENT SOLUTIONS MANAGER NOTES: PT STILL REFUSING TO HAVE HER DIAPER CHANGED AND SKIN ASSESSMENT IN GRAHAM AND SACRAL AREA. PT KEEPS SAYING GET AWAY FROM ME. PT REFUSING BLOOD PRESSURE CHECKED. PT REFUSING TO HAVE HER NASAL CANNULA PUT BACK ON. PT VERY COMBATIVE TO BOTH NURSE AND MAIL DELIVERER.
[2017-06-03] MEDS: BLOOD SUGAR DIAGNOSTIC 1 EACH STRIP IN SCH ×4 (06:11→22:14)
--- NOTE | 2017-06-03 06:29 | NUR ---
FREIGHT ELEVATOR ERECTOR NOTES: CALLED RT MARK AND INFORMED HIM THAT PT HAS SCHEDULED BREATHING TX.
[2017-06-03] MEDS: INSULIN REGULAR, HUMAN 100 UNIT/ML 3 ML VIAL SQ PRN ×3 (06:39→22:10)
--- NOTE | 2017-06-03 06:45 | NUR ---
SECURITY INCIDENT RESPONSE SPECIALIST NOTES: BLOOD SUGAR THIS AM WAS 246. 4 UNITS OF INSULIN WAS ADMINISTERED.
--- NOTE | 2017-06-03 07:01 | NUR ---
CAMP COORDINATOR NOTES: PT REFUSING BLOOD DRAW FROM MILKING WORKER AND SAID THAT "I WILL KICK YOU IF YOU DO". WILL TRY AGAIN AT ANOTHER TIME AND ENDORSE TO AM NURSE.
--- NOTE | 2017-06-03 07:15 | NUR ---
WELDING MACHINE OPERATOR/TENDER CLOSING NOTES: ALL NEEDS WERE ATTENDED AND ANTICIPATED FOR. PT IS A/OX2-3. PT HAS BEEN LETHARGIC THROUGHOUT MY SHIFT. PT HAS PERIODS OF BEING HOSTILE AT TIMES. PT ON ROOM AIR AND IS TOLERATING WELL. PT TOOK HER NC. WITHOUT NC, HER O2 SAT IS 92-93%. PT ON TELE BOX AND READING SHOWS SR 62 WITH FIRST DEGREE. PT HAS L AC #20G AND IS PATENT AND INTACT. HAS BEEN FLUSHED. PT CURRENTLY S/L. ALSO NOTED FLORENCE AV SHUNT. CALL LIGHT WITHIN PT'S REACH. BED KEPT IN LOW, LOCKED POSITION, AND SIDE RAILS X 2UP. ENDORSED TO AM NURSE FOR NICK.
--- NOTE | 2017-06-03 07:35 | NUR ---
RN OPENING NOTES RECEIVED PT. PT IS STABLE AND RESTING IN BED. A/OX2, PT IS LETHARGIC WITH SLIGHT CONFUSION. NO S/S OF RESPIRATORY DISTRESS, PT REFUSES NC WITH 2L O2, WILL CONTINUE TO MONITOR O2 SAT. PT DENIES PAIN AT THIS TIME. TELE MONITOR READING SR W/ 1ST DEGREE BLOCK. IV ACCESS LOCATED ON LEFT AC 20G SL. AV SHUNT ON FLORENCE, NOTED PRESENCE OF BRUIT/THRILL. PT REFUSED BLOOD DRAW IN AM. WILL F/U WITH LAB FOR ATTEMPT AT DRAW. SAFETY MEASURES IN PLACE,CALL LIGHT WITHIN REACH. WILL CONTINUE TO MONITOR.
[2017-06-03 08:00] VITALS: BP 158/60
[2017-06-03 08:09] LABS: HEMATOCRIT 29 % (33-45); LYMPHOCYTES # (AUTO) 0.6 /CMM (0.8-4.8); LYMPHOCYTES % (AUTO) 6.6 % (20.0-44.0); MEAN CORPUSCULAR HEMOGLOBIN 31 PG (26.0-33.0); MEAN CORPUSCULAR HGB CONC 34 g/dl (31.0-36.0); MEAN CORPUSCULAR VOLUME 91 fL (82-100); MONOCYTES # (AUTO) 0.3 /CMM (0.1-1.30); MONOCYTES % (AUTO) 2.9 % (2.0-12.0); NEUTROPHILS % (AUTO) 90.5 % (43.0-81.0); PLATELET COUNT (AUTO) 207 /CMM (150-450); RDW COEFFICIENT OF VARIATION 15.9 (11.5-15.0); WHITE BLOOD COUNT (AUTO) 8.8 K/uL (4.3-11.0)
[2017-06-03 08:26] LABS: CALCIUM, SERUM 9.4 mg/dL (8.5-10.1); CARBON DIOXIDE 24 mmol/L (21-32); CHLORIDE 102 mmol/L (98-107); CREATININE 5.5 mg/dL (0.6-1.3); GLUCOSE 244 mg/dL (74-106); MAGNESIUM 2.2 mg/dL (1.8-2.4); SODIUM SERUM 137 mmol/L (136-145); UREA NITROGEN, BLOOD 45 mg/dL (7-18)
[2017-06-03] MEDS ORDERED: Medication Not On Formulary EA (Esomeprazole Mag Trihydrate (Nexium) 40 MG) PO SCH (09:00)
[2017-06-03] MEDS: hydrALAZINE HCL 50 MG TABLET PO SCH ×3 (09:00→17:00)
[2017-06-03 09:11] LABS: CHOLESTEROL 106 mg/dL (<200); HDL CHOLESTEROL 52 mg/dL (40-60); LDL 43 mg/dL (0-99); THYROID STIMULATING HORMONE 0.669 uIU/mL (0.358-3.74); TRIGLYCERIDES 47 mg/dL (30-150)
--- NOTE | 2017-06-03 09:32 | NUR ---
RN NOTES PT AM MEDICATIONS AND BREATHING TX ARE UNVERIFIED ON EMAR, PHARMACY NOTIFIED. WILL F/U SHORTLY IN ORDER TO ADMIN.
[2017-06-03] MEDS: SEVELAMER CARBONATE 800 MG TABLET PO SCH ×3 (09:59→18:00)
[2017-06-03] MEDS: ISOSORBIDE MONONITRATE (30MG) 30 MG TAB.SR.24H PO SCH (09:59)
[2017-06-03] MEDS: methylPREDNISolone SOD SUCC 40 MG/ML VIAL IV SCH ×3 (10:00→17:00)
[2017-06-03] MEDS: BUPROPION XL 150 MG TAB.ER.24 PO SCH (10:00)
[2017-06-03] MEDS: INSULIN DETEMIR 100 UNIT/ML CARTRIDGE SQ SCH (10:00)
[2017-06-03] MEDS: AMLODIPINE BESYLATE 10 MG TABLET PO SCH (10:00)
[2017-06-03] MEDS: CALCITRIOL 0.25 MCG CAPSULE PO SCH (10:01)
[2017-06-03] MEDS ORDERED: FEE PK DOSING 1 MIN EA MC ONE (10:57)
[2017-06-03] MEDS ORDERED: LEVOFLOXACIN 500 MG /D5W 100ML 500 MG in PREMIX 1 EA IV ONE (11:00)
[2017-06-03 11:10] LABS: THYROID STIMULATING HORMONE 0.68 uIU/mL (0.358-3.74)
--- NOTE | 2017-06-03 11:47 | NUR ---
RN NOTES LEVEMIR NOT GIVEN AT ADMIN SCHEDULE, NOT IN CASETTE. PHARMACY NOTIFIED. LEVAQUIN NOT GIVEN AT SCHEDULED TIME DUE TO DIALYSIS PROCEDURE.
[2017-06-03] MEDS ORDERED: VANCOMYCIN 1 GM in IV D5W 250 ML IV ONE (12:00)
[2017-06-03 16:00] VITALS: BP 159/69
[2017-06-03] MEDS ORDERED: CEFTRIAXONE 1 G in IV D5W 50 ML IV SCH (17:00)
[2017-06-03] MEDS ORDERED: AZITHROMYCIN 500 MG in IV D5W 250 ML IV SCH (18:00)
--- NOTE | 2017-06-03 18:51 | NUR ---
RN CLOSING NOTES PT IN BED RESTING. NO S/S OF SOB/RESP DISTRESS. PT DOES NOT APPEAR TO BE IN PAIN. CT HEAD COMPLETED AND REPORTED. CALL LIGHT WITHIN REACH, WILL ENDORSE TO DISPLAY FABRICATOR FOR NICK.
[2017-06-03 20:00] VITALS: BP_SYST 101; BP_SYST 152; BP_SYST 169; BP_DIAS 62; BP_DIAS 83
--- NOTE | 2017-06-03 20:00 | NUR ---
RN NOTES RECEIVED PATIENT IN BED, ALERT AND ORIENTED X3, CALM, NO SOB, NO DISTRESS, TOLERATING 2LPM VIA NC, SPO2 100%, DENIES ANY PAIN AT THIS TIME, KEPT SAFE AND COMFORTABLE, CALL LIGHT WITHIN REACH.
--- NOTE | 2017-06-03 20:30 | NUR ---
NOTED EMPTY CUP OF [place] CARAMEL FRAPPUCINO, PER PATIENT WAS BROUGHT BY SON. EDUCATED PATIENT REGARDING IMPORTANCE OF DIET COMPLIANCE.
[2017-06-03] MEDS: ATORVASTATIN 10 MG TABLET PO SCH (22:10)
--- NOTE | 2017-06-03 22:15 | NUR ---
BG 410 MG/DL GIVEN REGULAR INSULIN 10 UNITS
--- NOTE | 2017-06-03 22:22 | NUR ---
REPEATED BG 339 MG/DL
--- NOTE | 2017-06-03 23:43 | NUR ---
PATIENT REQUESTED ACCUCHECK BG 261 MG/DL, REMINDED PATIENT TO CALL RIGHT AWAY IF FEELING DIAPHORETIC AND LETHARGIC. PATIENT VERBALIZED UNDERSTANDING
[2017-06-04] MEDS: IPRATROPIUM NEB FS 0.5 MG/2.5 ML AMPUL.NEB NEB SCH ×4 (01:30→22:25)
[2017-06-04] MEDS: ALBUTEROL FS 2.5 MG/0.5 ML VIAL.NEB NEB SCH ×4 (01:30→22:25)
[2017-06-04] MEDS: BLOOD SUGAR DIAGNOSTIC 1 EACH STRIP IN SCH ×4 (06:33→22:20)
[2017-06-04] MEDS: INSULIN REGULAR, HUMAN 100 UNIT/ML 3 ML VIAL SQ PRN ×4 (06:34→22:30)
--- NOTE | 2017-06-04 06:39 | NUR ---
PATIENT IS ALERT AND AWAKE, NO SOB, TOLERATING ROOM AIR AT THIS TIME, NO COMPLAIN OF PAIN AT THIS TIME, NO HYPOGLYCEMIA NOTED, FLORENCE AV SHUNT WITH NOTED BRUIT AND THRILL, REMOVED DRESSNG, NO BLEEDING, KEPT SAFE AND COMFORTABLE, CALL LIGHT WITHIN REACH.
[2017-06-04 07:35] LABS: HEMATOCRIT 30 % (33-45); HEMOGLOBIN 10.6 g/dL (11.5-14.8); LYMPHOCYTES # (AUTO) 0.6 /CMM (0.8-4.8); LYMPHOCYTES % (AUTO) 4.9 % (20.0-44.0); MEAN CORPUSCULAR HEMOGLOBIN 32 PG (26.0-33.0); MEAN CORPUSCULAR HGB CONC 35 g/dl (31.0-36.0); MEAN CORPUSCULAR VOLUME 92 fL (82-100); MONOCYTES # (AUTO) 0.7 /CMM (0.1-1.30); MONOCYTES % (AUTO) 5.6 % (2.0-12.0); NEUTROPHILS # (AUTO) 11.8 /CMM (1.8-8.9); NEUTROPHILS % (AUTO) 89.5 % (43.0-81.0); PLATELET COUNT (AUTO) 264 /CMM (150-450); RDW COEFFICIENT OF VARIATION 15.9 (11.5-15.0); RED BLOOD CELL COUNT(AUTO) 3.31 MIL/uL (4.0-5.2); WHITE BLOOD COUNT (AUTO) 13.2 K/uL (4.3-11.0)
[2017-06-04 07:55] LABS: CALCIUM, SERUM 9.2 mg/dL (8.5-10.1); CARBON DIOXIDE 28 mmol/L (21-32); CHLORIDE 97 mmol/L (98-107); CREATININE 4.7 mg/dL (0.6-1.3); GLUCOSE 173 mg/dL (74-106); POTASSIUM 4.8 mmol/L (3.5-5.1); SODIUM SERUM 135 mmol/L (136-145); UREA NITROGEN, BLOOD 50 mg/dL (7-18)
[2017-06-04 08:00] VITALS: BP 146/61
[2017-06-04] MEDS: PANTOPRAZOLE 40 MG TABLET.DR PO SCH (08:12)
[2017-06-04] MEDS: methylPREDNISolone SOD SUCC 40 MG/ML VIAL IV SCH ×3 (08:12→16:19)
[2017-06-04] MEDS: BUPROPION XL 150 MG TAB.ER.24 PO SCH (08:12)
[2017-06-04] MEDS: CALCITRIOL 0.25 MCG CAPSULE PO SCH (08:12)
[2017-06-04] MEDS: SEVELAMER CARBONATE 800 MG TABLET PO SCH ×3 (08:12→18:00)
[2017-06-04] MEDS: ISOSORBIDE MONONITRATE (30MG) 30 MG TAB.SR.24H PO SCH (08:24)
[2017-06-04] MEDS: AMLODIPINE BESYLATE 10 MG TABLET PO SCH (08:24)
[2017-06-04] MEDS: hydrALAZINE HCL 50 MG TABLET PO SCH ×3 (08:29→16:26)
[2017-06-04] MEDS: INSULIN DETEMIR 100 UNIT/ML CARTRIDGE SQ SCH (08:47)
[2017-06-04] MEDS: VIT B CMPLX 3/FA/VIT C/BIOTIN 1 TAB TABLET PO SCH (10:00)
[2017-06-04] MEDS ORDERED: VANCOMYCIN 500 MG in IV D5W 100 ML IV PRN (11:00)
[2017-06-04] MEDS ORDERED: VANCOMYCIN 1 GM in IV D5W 250 ML IV ONE (14:00)
[2017-06-04 16:00] VITALS: BP 120/74
--- NOTE | 2017-06-04 18:32 | NUR ---
RN CLOSING NOTE PT AWAKE AND RESTING IN BED. NO S/S OF RESP DISTRESS/SOB. NO C/O PAIN AT THIS TIME. PT BS ELEVATED ABOVE 200 THROUGHOUT SHIFT. ALL PT NEEDS ANTICIPATED AND MET. SAFETY MEASURES IN PLACE, CALL LIGHT IN REACH. WILL ENDORSE TO BIT TAPPER FOR NICK.
--- NOTE | 2017-06-04 19:35 | NUR ---
RN OPENING NOTES RECEIVED REPORT FROM GUERO RNRACHEL. FOUND Pt AWAKE, RESTING IN BED. FAMILY VISITING AT BEDSIDE. Pt IS A/OX3, VERBAL, ABLE TO MAKE NEEDS KNOWN. NO S/S OF ACUTE DISTRESS OR SEVERE SOB NOTED. NO C/O PAIN AT THIS TIME. IV ACCESS ON LAC #20G, SL & FLORENCE AV SHUNT. SAFETY MEASURES IN PLACE. BED LOW, LOCKED, HOB ELEVATED SIDE RAILS UP, CALL LIGHT AND BEDSIDE TABLE WITHIN REACH. WILL CONTINUE TO MONITOR Pt THROUGHOUT THE NIGHT FOR SAFETY.
[2017-06-04 20:00] VITALS: BP 133/57
[2017-06-04] MEDS: ATORVASTATIN 10 MG TABLET PO SCH (22:20)
--- NOTE | 2017-06-04 22:30 | NUR ---
RN NOTES BG 364. ADMINISTERED 10UN OF INSULIN PER SLIDING SCALE.
[2017-06-05] MEDS: ALBUTEROL FS 2.5 MG/0.5 ML VIAL.NEB NEB SCH ×4 (01:30→19:46)
[2017-06-05] MEDS: IPRATROPIUM NEB FS 0.5 MG/2.5 ML AMPUL.NEB NEB SCH ×4 (01:30→19:46)
[2017-06-05] MEDS ORDERED: VANCOMYCIN 500 MG in IV D5W 100 ML IV PRN (06:00)
--- NOTE | 2017-06-05 06:30 | NUR ---
RN NOTES BG 279. ADMINISTERED 6UN OF INSULIN PER SLIDING SCALE.
--- NOTE | 2017-06-05 06:40 | NUR ---
RN CLOSING NOTES NO SIGNIFICANT CHANGES IN Pt's CONDITION. Pt REMAINS STABLE AT THIS TIME. NO S/S OF ACUTE DISTRESS OR SOB NOTED. ALL NEEDS MET AND ATTENDED TO. SAFETY MEASURES IN PLACE. WILL ENDORSE TO DAYSHIFT RN FOR Pt's NICK.
[2017-06-05] MEDS: INSULIN REGULAR, HUMAN 100 UNIT/ML 3 ML VIAL SQ PRN ×4 (06:56→22:05)
[2017-06-05] MEDS: BLOOD SUGAR DIAGNOSTIC 1 EACH STRIP IN SCH ×4 (06:58→21:49)
--- NOTE | 2017-06-05 07:00 | NUR ---
RN NOTES PATIENT RESTING IN BED. NONLABORED BREATHING NOTED PATIENT DENIES PAIN. PATIENT AOX3. IV SITE ON LEFT AC PATENT AND INTACT. R UPPER ARM AV SHUNT WITH DRESSING INTACT. BED IN LOWEST LOCKED POSITION. CALL LIGHT WITHIN REACH. WILL CONTINUE TO MONITOR
[2017-06-05 08:00] VITALS: BP 158/55
[2017-06-05] MEDS: INSULIN DETEMIR 100 UNIT/ML CARTRIDGE SQ SCH (09:00)
[2017-06-05] MEDS: AMLODIPINE BESYLATE 10 MG TABLET PO SCH (09:00)
[2017-06-05] MEDS ORDERED: methylPREDNISolone SOD SUCC 40 MG/ML VIAL IV SCH (09:00)
[2017-06-05] MEDS: hydrALAZINE HCL 50 MG TABLET PO SCH ×3 (09:00→18:06)
[2017-06-05] MEDS: ISOSORBIDE MONONITRATE (30MG) 30 MG TAB.SR.24H PO SCH (09:00)
[2017-06-05] MEDS ORDERED: LEVOFLOXACIN 250 MG /D5W 50 ML 250 MG in PREMIX 1 EA IV SCH (11:00)
[2017-06-05] MEDS: CALCITRIOL 0.25 MCG CAPSULE PO SCH (11:19)
[2017-06-05] MEDS: VIT B CMPLX 3/FA/VIT C/BIOTIN 1 TAB TABLET PO SCH (11:20)
[2017-06-05] MEDS: SEVELAMER CARBONATE 800 MG TABLET PO SCH ×3 (11:21→18:05)
[2017-06-05] MEDS: BUPROPION XL 150 MG TAB.ER.24 PO SCH (11:21)
[2017-06-05] MEDS: PANTOPRAZOLE 40 MG TABLET.DR PO SCH (11:28)
[2017-06-05 11:32] LABS: HEMATOCRIT 33 % (33-45); HEMOGLOBIN 11.3 g/dL (11.5-14.8); LYMPHOCYTES # (AUTO) 0.9 /CMM (0.8-4.8); LYMPHOCYTES % (AUTO) 6.9 % (20.0-44.0); MEAN CORPUSCULAR HEMOGLOBIN 31 PG (26.0-33.0); MEAN CORPUSCULAR HGB CONC 34 g/dl (31.0-36.0); MEAN CORPUSCULAR VOLUME 90 fL (82-100); MONOCYTES # (AUTO) 0.8 /CMM (0.1-1.30); MONOCYTES % (AUTO) 6.4 % (2.0-12.0); NEUTROPHILS # (AUTO) 11.2 /CMM (1.8-8.9); NEUTROPHILS % (AUTO) 86.7 % (43.0-81.0); PLATELET COUNT (AUTO) 278 /CMM (150-450); RDW COEFFICIENT OF VARIATION 16.4 (11.5-15.0); RED BLOOD CELL COUNT(AUTO) 3.65 MIL/uL (4.0-5.2); WHITE BLOOD COUNT (AUTO) 12.9 K/uL (4.3-11.0)
[2017-06-05 16:00] VITALS: BP 147/67
[2017-06-05] MEDS: LACTOBACILLUS RHAMNOSUS GG 1 EACH CAP.SPRINK PO SCH (18:05)
--- NOTE | 2017-06-05 19:30 | NUR ---
RN NOTES: PATIENT RESTING IN BED. NONLABORED BREATHING NOTED ON 2L NASAL CANNULA. PATIENT DENIES PAIN. PATIENT AOX3. IV SITE ON LEFT AC PATENT AND INTACT. R UPPER ARM AV SHUNT WITH DRESSING INTACT. PATIENT RECEIVED HEMODIALYSIS IN THE AM. BLOOD PRESSURE MEDICATIONS HELD. PATIENT WAS REFUSING FOOD AND MEDICATIONS DURING DIALYSIS. ADMINISTERED AFTER DISCUSSED FULL CODE STATUS WITH PATIENT AND PETER, SON. PER SON AND PATIENT, THEY WANT A POLST THAT INDICATES DNR/DNI. REENA SUAREZ INFORMED REGARDING CURRENT FULL CODE STATUS . PATIENT EDUCATED THAT PER ORDERS, SHE IS FULL CODE AT THE MOMENT. VERBALIZED UNDERSTANDING. PLACED AN EMPTY POLST IN CHART TO BE FILLED OUT TOMORROW. INSULIN HELD IN THE MORNING, LEVEMIR. PATIENT WAS REFUSING TO EAT. BLOOD SUGAR AT [phone], RESASSED AND STILL AT SAME VALUE , 10 UNITS SUBCUATANEOULSY ADMINISTERED. CONTACTED [employer]. HOWEVER, LINE WAS BUSY. PATIENT REASSESSED AFTER 70 MINS. BLOOD SUGAR AT 444, PER DR LANDA, INSULIN REGULAR 15 UNITS GIVEN SUBCUATENOUSLY. ENDORSED TO NEXT SHIFT
--- NOTE | 2017-06-05 19:30 | NUR ---
MS RN INITIAL NOTES PT IS IN BED AWAKE AND ALERT, ABLE TO MAKE NEEDS KNOWN. NO SIGNS OF SOB OR DISTRESS. BREATHING EVENLY AND UNLABORED ON 2L NC. S/P HEMODIALYSIS TODAY, 2L REMOVED. PENDING FAMILY TO SIGN DNR FORM. PT BS WAS 444, MITRA SALAS GAVE 15 UNITS SQ, WILL FOLLOW UP ON BS. DENIES PAIN. BED IS IN LOW AND LOCKED POSITION, CALL LIGHT WITHIN REACH. WILL CONTINUE TO MONITOR PT.
[2017-06-05 20:00] VITALS: BP 149/66
[2017-06-05] MEDS: ATORVASTATIN 10 MG TABLET PO SCH (21:49)
[2017-06-06] MEDS: ALBUTEROL FS 2.5 MG/0.5 ML VIAL.NEB NEB SCH ×3 (01:32→13:54)
[2017-06-06] MEDS: IPRATROPIUM NEB FS 0.5 MG/2.5 ML AMPUL.NEB NEB SCH ×3 (01:32→13:54)
--- NOTE | 2017-06-06 06:25 | NUR ---
MS RN CLOSING NOTES PT IS IN BED RESTING, NO SIGNS OF SOB OR DISTRESS. BREATHING EVENLY AND UNLABORED ON RA. AL NEEDS WERE ANTICIPATED AND MET. BED IS IN LOW AND LOCKED POSITION, CALL LIGHT WITHIN REACH. WILL ENDORSE TO DAYSHIFT
[2017-06-06] MEDS: BLOOD SUGAR DIAGNOSTIC 1 EACH STRIP IN SCH ×2 (06:49→12:03)
[2017-06-06 08:00] VITALS: BP 146/60
--- NOTE | 2017-06-06 08:00 | NUR ---
COOPERATIVE AND COMPLIANT.DENIES DISCOMFORT. VS STABLE.
[2017-06-06 08:25] LABS: BASOPHILS % (AUTO) 0.1 % (0.0-2.0); HEMATOCRIT 32 % (33-45); HEMOGLOBIN 10.9 g/dL (11.5-14.8); LYMPHOCYTES # (AUTO) 1.2 /CMM (0.8-4.8); LYMPHOCYTES % (AUTO) 9.2 % (20.0-44.0); MEAN CORPUSCULAR HEMOGLOBIN 32 PG (26.0-33.0); MEAN CORPUSCULAR HGB CONC 35 g/dl (31.0-36.0); MEAN CORPUSCULAR VOLUME 91 fL (82-100); MONOCYTES # (AUTO) 1.4 /CMM (0.1-1.30); MONOCYTES % (AUTO) 10.6 % (2.0-12.0); NEUTROPHILS # (AUTO) 10.6 /CMM (1.8-8.9); NEUTROPHILS % (AUTO) 80.1 % (43.0-81.0); PLATELET COUNT (AUTO) 258 /CMM (150-450); RDW COEFFICIENT OF VARIATION 16.4 (11.5-15.0); RED BLOOD CELL COUNT(AUTO) 3.46 MIL/uL (4.0-5.2); WHITE BLOOD COUNT (AUTO) 13.3 K/uL (4.3-11.0)
[2017-06-06 08:38] LABS: CALCIUM, SERUM 8.9 mg/dL (8.5-10.1); CARBON DIOXIDE 31 mmol/L (21-32); CHLORIDE 99 mmol/L (98-107); CREATININE 5.5 mg/dL (0.6-1.3); GLUCOSE 128 mg/dL (74-106); POTASSIUM 4.6 mmol/L (3.5-5.1); SODIUM SERUM 139 mmol/L (136-145); UREA NITROGEN, BLOOD 76 mg/dL (7-18)
[2017-06-06] MEDS ORDERED: predniSONE 20 MG TABLET PO SCH (09:00)
[2017-06-06] MEDS: SEVELAMER CARBONATE 800 MG TABLET PO SCH ×3 (10:18→17:26)
[2017-06-06] MEDS: PANTOPRAZOLE 40 MG TABLET.DR PO SCH (10:18)
[2017-06-06] MEDS: CALCITRIOL 0.25 MCG CAPSULE PO SCH (10:19)
[2017-06-06] MEDS: ISOSORBIDE MONONITRATE (30MG) 30 MG TAB.SR.24H PO SCH (10:19)
[2017-06-06] MEDS: LACTOBACILLUS RHAMNOSUS GG 1 EACH CAP.SPRINK PO SCH ×2 (10:19→17:25)
[2017-06-06] MEDS: VIT B CMPLX 3/FA/VIT C/BIOTIN 1 TAB TABLET PO SCH (10:19)
[2017-06-06] MEDS: AMLODIPINE BESYLATE 10 MG TABLET PO SCH (10:20)
[2017-06-06] MEDS: BUPROPION XL 150 MG TAB.ER.24 PO SCH (10:25)
[2017-06-06] MEDS: hydrALAZINE HCL 50 MG TABLET PO SCH ×3 (10:26→17:00)
[2017-06-06] MEDS: INSULIN DETEMIR 100 UNIT/ML CARTRIDGE SQ SCH (10:27)
[2017-06-06] MEDS ORDERED: METH4TAB3 PO (10:43)
[2017-06-06] MEDS ORDERED: LEVO750T21 PO (10:43)
[2017-06-06] MEDS: INSULIN REGULAR, HUMAN 100 UNIT/ML 3 ML VIAL SQ PRN (13:13)
--- NOTE | 2017-06-06 14:00 | NUR ---
CASE MGMT. CONTACTED REGARDS TO NEED FOR PRN HHN TXS POST DC.WILL ARRANGE.
[2017-06-06 16:00] VITALS: BP 119/52
--- NOTE | 2017-06-06 16:00 | NUR ---
MD IN AND DISCH. PHOTOS TAKEN.
[2017-06-06 17:00] VITALS: BP 119/52
--- NOTE | 2017-06-06 17:00 | NUR ---
AMBULANCE HERE PT. C/O SOB POX CHECKED ON RM. AIR,AT THIS TIME 98%.DOES NOT QUALIFY FOR HOME O2. DRIVERS AWARE. HEP LOCK OUT. TERRAZZO MECHANIC HELPER GIVEN REPORT.REPORT CALLED TO SALES AND SUPPORT CENTER AGENT AT FACILITY WITH REVIEW OF RXS.ALL PAPERS SIGNED.TAKEN TO FACILITY VIA AMBULANCE.
== END 2017-06-06 17:42 | DRG 291 ==
LOC: ER 15:35 → TELE 21:14 → MED 06-03 10:40
PROVIDERS: ADMIT Nurse Practitioner Acute Care; ATTEND Nurse Practitioner Acute Care
PROC: 5A1D70Z Performance of Urinary Filtration, Intermittent, Less than 6 Hours Per Day (ICD-10-PCS; principal; 2017-06-03)
PROC: 5A1D70Z Performance of Urinary Filtration, Intermittent, Less than 6 Hours Per Day (ICD-10-PCS; 2017-06-05)
DX: I13.2 Hypertensive heart and chronic kidney disease with heart failure and with stage 5 chronic kidney disease, or end stage renal disease (principal); J18.9 Pneumonia, unspecified organism; E11.21 Type 2 diabetes mellitus with diabetic nephropathy; E11.65 Type 2 diabetes mellitus with hyperglycemia; N18.6 End stage renal disease; E87.5 Hyperkalemia; I50.33 Acute on chronic diastolic (congestive) heart failure; E44.1 Mild protein-calorie malnutrition; J98.11 Atelectasis; J44.0 Chronic obstructive pulmonary disease with (acute) lower respiratory infection; J44.1 Chronic obstructive pulmonary disease with (acute) exacerbation; G35 Multiple sclerosis; D63.1 Anemia in chronic kidney disease; I11.0 Hypertensive heart disease with heart failure; E11.22 Type 2 diabetes mellitus with diabetic chronic kidney disease; Z99.2 Dependence on renal dialysis; E78.5 Hyperlipidemia, unspecified; I25.10 Atherosclerotic heart disease of native coronary artery without angina pectoris; I25.2 Old myocardial infarction; I70.0 Atherosclerosis of aorta; K21.9 Gastro-esophageal reflux disease without esophagitis; Z87.891 Personal history of nicotine dependence; Z85.3 Personal history of malignant neoplasm of breast; Z83.3 Family history of diabetes mellitus; Z79.899 Other long term (current) drug therapy; Z88.4 Allergy status to anesthetic agent; Z88.0 Allergy status to penicillin; Z79.84 Long term (current) use of oral hypoglycemic drugs; S05.12XD Contusion of eyeball and orbital tissues, left eye, subsequent encounter; S05.11XD Contusion of eyeball and orbital tissues, right eye, subsequent encounter; W19.XXXD Unspecified fall, subsequent encounter; Z91.81 History of falling; Z90.49 Acquired absence of other specified parts of digestive tract; Z90.10 Acquired absence of unspecified breast and nipple; Z92.3 Personal history of irradiation; Y95 Nosocomial condition; G47.30 Sleep apnea, unspecified
CPT/HCPCS: 36415; 70486-TC; 71045-TC; 80048-TC; 80061-TC; 80076-TC; 80202-TC; 82306; 82728-TC; 82962-TC; 83540-TC; 83735-TC; 83880; 84100-TC; 84439-TC; 84443-TC; 84484-TC; 85025-TC; 87040-TC; 87081-TC; 87400; 90935-TC; 93307-TC; 94799-TC; A4216; A4606; J0456; J0696; J1815; J1940; J1956; J2920; J2930; J3370; J7030; J7050; J7060; Z7610

== ENCOUNTER 2017-07-30 20:42 | Inpatient (IN) | payer MEDICARE, OTHER ==
[~2017-07-30] VITALS: Ht 160 cm; Wt 69.4 kg
[~2017-07-30 20:42] MED LIST changes: +AMLO10TA2 PO; +FOLI0.8T23 PO; +GUAI100S94 PO; +METH4TAB3 PO
--- NOTE | 2017-07-30 20:51 | NUR ---
BBRA 88; "FELL OUT OF CHAIR" LEFT HIP AND LEFT SHOULDER PAIN DENIES KO/NECK OR BACK PAIN. PT AOX3 RR EVEN AND UNLABNORED. NO SOB NOTED. NAD NOTED. NO NVD AT THIS TIME. PT GOWNED AND PLACED ON MONITOR WAITING FOR MD MANN.
--- NOTE | 2017-07-30 21:13 | NUR ---
RADIOLOGY AT BEDSIDE FOR CXR
--- NOTE | 2017-07-30 21:39 | NUR ---
DR. SIGALA AT BEDSIDE SPEAKING TO PT REGARDING POC
--- NOTE | 2017-07-30 21:50 | NUR ---
PT TO RADIOLOGY
--- NOTE | 2017-07-30 22:05 | NUR ---
PT RETURNED FROM CT.
--- NOTE | 2017-07-30 22:21 | NUR ---
DR. SIGALA AT BEDSIDE SPEAKING TO PT REGARDING RESULTS.
--- NOTE | 2017-07-30 22:31 | NUR ---
called md hever Schwab
[2017-07-30] MEDS ORDERED: MORPHINE SULFATE INJ 2 MG/ML DISP.SYRIN IV ONE (23:00)
[2017-07-30] MEDS ORDERED: ONDANSETRON HCL/PF - ER 4 MG/2 ML VIAL IV ONE (23:00)
[2017-07-30] MEDS ORDERED: MORPHINE SULFATE INJ 4 MG/ML DISP.SYRIN ONE (23:04)
[2017-07-30] MEDS ORDERED: ONDANSETRON HCL/PF 4 MG/2 ML VIAL ONE (23:04)
[2017-07-30 23:08] LABS: BASOPHILS % (AUTO) 0.3 % (0.0-2.0); EOSINOPHILS # (AUTO) 0.2 /CMM (0.0-0.7); EOSINOPHILS % (AUTO) 2.6 % (0.0-6.0); HEMATOCRIT 33 % (33-45); HEMOGLOBIN 10.9 g/dL (11.5-14.8); LYMPHOCYTES % (AUTO) 10.9 % (20.0-44.0); MEAN CORPUSCULAR HEMOGLOBIN 32 PG (26.0-33.0); MEAN CORPUSCULAR HGB CONC 34 g/dl (31.0-36.0); MEAN CORPUSCULAR VOLUME 95 fL (82-100); MONOCYTES # (AUTO) 0.7 /CMM (0.1-1.30); MONOCYTES % (AUTO) 7.9 % (2.0-12.0); NEUTROPHILS # (AUTO) 7.2 /CMM (1.8-8.9); NEUTROPHILS % (AUTO) 78.3 % (43.0-81.0); PLATELET COUNT (AUTO) 223 /CMM (150-450); RDW COEFFICIENT OF VARIATION 15.6 (11.5-15.0); RED BLOOD CELL COUNT(AUTO) 3.43 MIL/uL (4.0-5.2); WHITE BLOOD COUNT (AUTO) 9.2 K/uL (4.3-11.0)
--- NOTE | 2017-07-30 23:15 | NUR ---
REPORT GIVEN TO MITRA WHITAKER FOR [facility] MS BED 207-2
[2017-07-30 23:20] LABS: CALCIUM, SERUM 9.5 mg/dL (8.5-10.1); CARBON DIOXIDE 26 mmol/L (21-32); CHLORIDE 104 mmol/L (98-107); CREATININE 4.5 mg/dL (0.6-1.3); GLUCOSE 141 mg/dL (74-106); POTASSIUM 4.9 mmol/L (3.5-5.1); SODIUM SERUM 141 mmol/L (136-145); UREA NITROGEN, BLOOD 33 mg/dL (7-18)
[2017-07-30 23:23] LABS: INR 0.96 (0.87-1.13)
[2017-07-30 23:30] VITALS: BP 174/69
[2017-07-30 23:30] LABS: TROPONIN I < 0.017 ng/mL (0.00-0.056)
[2017-07-30] MEDS ORDERED: HYDROCODONE/APAP 5/325MG 1 EACH TABLET PO PRN (23:30)
[2017-07-30] MEDS ORDERED: ONDANSETRON HCL/PF 4 MG/2 ML VIAL IVP PRN (23:30)
[2017-07-30] MEDS ORDERED: Z GUARD REMEDY 2 OZ OINT TP PRN (23:30)
[2017-07-30] MEDS ORDERED: ACETAMINOPHEN 325 MG TABLET PO PRN (23:30)
[2017-07-30] MEDS ORDERED: MAGNESIUM HYDROXIDE 30 ML UDC PO PRN (23:30)
[2017-07-30] MEDS ORDERED: IV NS 0.9% 1,000 ML IV PRN (23:30)
[2017-07-30] MEDS ORDERED: ZOLPIDEM TARTRATE 5 MG TABLET PO PRN (23:30)
--- NOTE | 2017-07-30 23:31 | NUR ---
PT TRANSFERRED VIA [facility]
--- NOTE | 2017-07-30 23:35 | NUR ---
MS/RN NOTES RECEIVED PT. FROM ER VIA PATRICE. PT. IS AWAKE, ALERT AND ORIENTED X4. BREATHING EVEN AND UNLABORED ON ROOM AIR. NO SOB OR RESPIRATORY DISTRESS NOTED AT THIS TIME. PT. COMPLAINING OF PAIN 5/10 IN HER LEFT HIP. PT. STATES THE PAIN MEDICATION SHE RECEIVED IN THE ER HELPED A LOT AND THE PAIN IS IMPROVING. ORIENTED PT. TO ROOM. PT. WITH RIGHT UPPER ARM DIALYSIS SHUNT. PT. WITH LEFT FOREARM 20 GAUGE IV SALINE LOCK PRESENT, PATENT AND INTACT. PT. WITH BONNER CATHETER PRESENT, PATENT AND INTACT. BED LOCKED AND IN LOWEST POSITION, SIDE RAILS UP X3, CALL LIGHT WITHIN REACH, BED ALARM ON, WILL CONTINUE TO MONITOR.
--- NOTE | 2017-07-30 23:40 | NUR ---
URINE COLLECTED. SENT TO LAB
[2017-07-31 00:23] LABS: APPEARANCE,URINE SL CLOUDY (CLEAR); BILIRUBIN,URINE NEGATIVE (NEGATIVE); BLOOD, URINE TRACE Ery/uL (NEGATIVE); COLOR,URINE YELLOW (YELLOW); KETONES,URINE NEGATIVE (NEGATIVE); LEUKOCYTE ESTERASE ,URINE NEGATIVE (NEGATIVE); NITRITE, URINE NEGATIVE (NEGATIVE); PROTEIN,URINE 3+ mg/dl (NEGATIVE); UGLUCOSE 2+ mg/dL (NEGATIVE); UROBILINOGEN,URINE 0.2 EU/dL (0.2)
[2017-07-31 00:25] LABS: PH,URINE 8.5 (5.0-8.0)
[2017-07-31 00:34] LABS: BACTERIA,URINE None seen /HPF (None Seen); SQUAMOUS EPITHELIAL CELL,UR Few /HPF (None Seen); WBC,URINE 0-2 /HPF (0-3)
[2017-07-31] MEDS ORDERED: MORPHINE SULFATE INJ 2 MG/ML DISP.SYRIN IV PRN (01:00)
[2017-07-31] MEDS ORDERED: DEXTROSE 50%-WATER 50 ML DISP.SYRIN IV PRN (01:00)
[2017-07-31] MEDS: BLOOD SUGAR DIAGNOSTIC 1 EACH STRIP IN SCH ×6 (06:00→23:32)
[2017-07-31 06:44] LABS: BASOPHILS % (AUTO) 0.3 % (0.0-2.0); EOSINOPHILS # (AUTO) 0.3 /CMM (0.0-0.7); EOSINOPHILS % (AUTO) 2.9 % (0.0-6.0); HEMATOCRIT 32 % (33-45); HEMOGLOBIN 10.5 g/dL (11.5-14.8); LYMPHOCYTES # (AUTO) 1.2 /CMM (0.8-4.8); LYMPHOCYTES % (AUTO) 13.7 % (20.0-44.0); MEAN CORPUSCULAR HEMOGLOBIN 32 PG (26.0-33.0); MEAN CORPUSCULAR HGB CONC 34 g/dl (31.0-36.0); MEAN CORPUSCULAR VOLUME 95 fL (82-100); MONOCYTES # (AUTO) 0.8 /CMM (0.1-1.30); MONOCYTES % (AUTO) 9.1 % (2.0-12.0); NEUTROPHILS # (AUTO) 6.5 /CMM (1.8-8.9); PLATELET COUNT (AUTO) 197 /CMM (150-450); RDW COEFFICIENT OF VARIATION 15.5 (11.5-15.0); WHITE BLOOD COUNT (AUTO) 8.8 K/uL (4.3-11.0)
--- NOTE | 2017-07-31 06:50 | NUR ---
MS/RN NOTES PT. IS LYING IN BED RESTING. BREATHING EVEN AND UNLABORED ON ROOM AIR. NO SOB, RESPIRATORY DISTRESS OR COMPLAINTS OF PAIN NOTED AT THIS TIME. PT. WITH LEFT FOREARM 20 GAUGE PERIPHERAL IV PRESENT, PATENT AND INTACT ADMINISTERING TO PT. NS @ 50ML/HR. NO S/S OF HYPO/HYPERGLYCEMIA NOTED AT THIS TIME AND THROUGHOUT SHIFT. UNABLE TO TAKE PICTURES OF PATIENT SACRAL REDNESS DUE TO PAIN WHEN THE PT. MOVES. PT. WITH BONNER CATHETER PRESENT, PATENT AND INTACT. ALL PT. NEEDS MET. BED LOCKED AND IN LOWEST POSITION, SIDE RAILS UP X3, CALL LIGHT WITHIN REACH, BED ALARM ON, WILL ENDORSE TO DAYSHIFT NURSE FOR CONTINUITY OF CARE.
[2017-07-31 06:54] LABS: CHOLESTEROL 114 mg/dL (<200); HDL CHOLESTEROL 63 mg/dL (40-60); LDL 44 mg/dL (0-99); TRIGLYCERIDES 59 mg/dL (30-150)
[2017-07-31 06:56] LABS: CALCIUM, SERUM 9.4 mg/dL (8.5-10.1); CARBON DIOXIDE 26 mmol/L (21-32); CHLORIDE 106 mmol/L (98-107); CREATININE 4.8 mg/dL (0.6-1.3); GLUCOSE 105 mg/dL (74-106); PHOSPHORUS 5.1 mg/dL (2.5-4.9); POTASSIUM 5.6 mmol/L (3.5-5.1); SODIUM SERUM 142 mmol/L (136-145); UREA NITROGEN, BLOOD 35 mg/dL (7-18)
[2017-07-31 08:00] VITALS: BP 172/70
[2017-07-31] MEDS: SEVELAMER CARBONATE 800 MG TABLET PO SCH ×3 (08:00→18:48)
--- NOTE | 2017-07-31 08:13 | NUR ---
MS RN: INITIAL NOTE RECEIVED PT A/OX4. L ACUTE HIP FX. USES DIAPER. BONNER CATH IN PLACE. BED RST. USES WHEELCHAIR USUALLY. NPO EXCEPT MEDS DUE TO ORHTO CONSULT. L FA #20 RUNNING NS AT 50ML.HR. SITE CLEAR AND PATENT. NO REDNESS OR BLEEDING NOTED. NO DISTRESS NOTED. NO SOB NOTED. RESTING COMFORTABLY IN BED. CALL LIGHT WITHIN REACH.
[2017-07-31] MEDS ORDERED: IV D5/ 0.9% NACL 1,000 ML IV PRN (09:49)
[2017-07-31] MEDS: BUPROPION XL 150 MG TAB.ER.24 PO SCH (09:54)
[2017-07-31] MEDS: ATORVASTATIN 10 MG TABLET PO SCH (09:54)
[2017-07-31] MEDS: CALCITRIOL 0.25 MCG CAPSULE PO SCH (09:54)
[2017-07-31] MEDS: MORPHINE SULFATE INJ 4 MG/ML DISP.SYRIN IV PRN ×2 (09:55→16:37)
[2017-07-31] MEDS ORDERED: EPOETIN ALFA (10,000 UNIT) 10,000 UNIT/ML VIAL IV ONE (10:00)
--- NOTE | 2017-07-31 10:03 | NUR ---
HELD JUAN AND JUSTINA DUE TO SCHEDULED DIALYSIS.
--- NOTE | 2017-07-31 11:59 | NUR ---
HELD JAMIE DUE TO PT BEING NPO
[2017-07-31] MEDS: AMLODIPINE BESYLATE 10 MG TABLET PO SCH (12:44)
[2017-07-31] MEDS: ISOSORBIDE MONONITRATE (30MG) 30 MG TAB.SR.24H PO SCH (12:44)
[2017-07-31 16:00] VITALS: BP 146/52
--- NOTE | 2017-07-31 16:07 | NUR ---
PER CHAPARRO URIBE AND MD SALAZAR TO ALLOW PT TO EAT DINNER TONIGHT CCHO [address]. PLACE BACK NPO FOR 08/01/17 FOR POSSIBLE SURGERY OF R HIP FX. ORDERS CARRIED OUT.
--- NOTE | 2017-07-31 17:44 | NUR ---
DIALYSIS COMPLETE. 0 ML OUTPUT DUE TO PT BEING NPO. STABLE. VS STABLE BP 141/52, PULSE 74.
--- NOTE | 2017-07-31 18:34 | NUR ---
MS RN: CLOSING NOTE PT TOOK ALL MEDICATIONS ON TIME. NO ADVERSE REACTIONS NOTED. NO SOB NOTED. WAS NPO ALL DAY. ABLE TO HAVE DINNER. NPO STARTING MIDNIGHT TODAY FOR POSSIBLE SURGERY TOMORROW. A/OX4. USES BEDPAN. CCHO DIET. NPO 08/01/17. PAIN CONTROLLED WITH PAIN MEDICATIONS. L FA #[id number]. SITE CLEAR AND PATENT. NO REDNESS OR BLEEDING NOTED. RESTING COMFORTABLY IN BED. CALL LIGHT WITHIN REACH.
--- NOTE | 2017-07-31 19:30 | NUR ---
RN NOTE; RECEIVED PT IN BED SLEEPING. AROUSES EASILY. BREATHING EVENLY. NO SOB. NAD. SKIN WARM AND DRY. NO S/S OF PAIN OR DISCOMFORT. NO COMPLICATIONS S/P HD NOTED. BED LOW LOCKED.CALL LIGHT WITHIN REACH. WILL CONT TO MONITOR.
[2017-07-31 20:00] VITALS: BP 158/64
[2017-08-01] MEDS ORDERED: MORPHINE SULFATE INJ 4 MG/ML DISP.SYRIN IV PRN ×3 (00:30→21:00)
[2017-08-01] MEDS: BLOOD SUGAR DIAGNOSTIC 1 EACH STRIP IN SCH ×3 (06:36→18:00)
--- NOTE | 2017-08-01 06:53 | NUR ---
RN NOTE; PT IN BED SLEEPING AROUSES EASILY. BREATHING EVENLY. NO ACUTE EVENT DURING THE NIGHT, NO C/O PAIN OR DISCOMFORT .KEPT PT NPO POST MN FOR POSSIBLE SX. WILL ENDORSE TO AM SHIFT TO F/U W/ MD . NEEDS ATTENDED . CALL LIGHT WITHIN REACH, WILL CONT TO MONITOR AND WILL ENDORSE TO AM SHIFT FOR NICK.
--- NOTE | 2017-08-01 07:44 | NUR ---
MS RN: INITIAL NOTE RECEIVED PT A/OX4. MS. NPO DUE TO POSSIBLE SURGERY. ANURIC. BEDREST. TURNED AND REPOSITIONED Q 2HRS. ABLE TO GIVE MEDICATIONS WITH SIPS OF WATER. L FA #[id number]. [place]OR[place] AV SHUNT. SITE CLEAR AND PATENT. DRESSING INTACT. NO DISTRESS NOTED. NO SOB NOTED. PAIN CONTROLLED WITH PAIN MEDICATIONS. RESTING COMFORTABLY IN BED. CALL LIGHT WITHIN REACH.
[2017-08-01 08:00] VITALS: BP_SYST 167; BP_SYST 191; BP_DIAS 107; BP_DIAS 64
[2017-08-01] MEDS: SEVELAMER CARBONATE 800 MG TABLET PO SCH ×3 (08:00→18:00)
[2017-08-01] MEDS: ISOSORBIDE MONONITRATE (30MG) 30 MG TAB.SR.24H PO SCH (08:46)
[2017-08-01] MEDS: ATORVASTATIN 10 MG TABLET PO SCH (08:47)
[2017-08-01] MEDS: MORPHINE SULFATE INJ 4 MG/ML DISP.SYRIN IV PRN (08:47)
[2017-08-01] MEDS: AMLODIPINE BESYLATE 10 MG TABLET PO SCH (08:47)
[2017-08-01] MEDS: BUPROPION XL 150 MG TAB.ER.24 PO SCH (08:47)
[2017-08-01] MEDS: CALCITRIOL 0.25 MCG CAPSULE PO SCH (08:47)
[2017-08-01 12:20] LABS: CALCIUM, SERUM 9.1 mg/dL (8.5-10.1); CARBON DIOXIDE 28 mmol/L (21-32); CHLORIDE 102 mmol/L (98-107); GLUCOSE 103 mg/dL (74-106); POTASSIUM 5.2 mmol/L (3.5-5.1); SODIUM SERUM 138 mmol/L (136-145); UREA NITROGEN, BLOOD 30 mg/dL (7-18)
[2017-08-01 12:26] LABS: ALANINE AMINOTRANSFERASE 18 U/L (12-78); ALBUMIN 2.8 g/dL (3.4-5.0); ALKALINE PHOSPHATASE 136 U/L (46-116); ASPARTATE AMINOTRANSFERASE 12 U/L (15-37); BILIRUBIN,TOTAL 0.6 mg/dL (0.2-1.0); TOTAL PROTEIN, SERUM 5.9 g/dL (6.4-8.2)
--- NOTE | 2017-08-01 13:31 | NUR ---
HOLDING RENVELA DUE TO PT BEING NPO.
--- NOTE | 2017-08-01 13:48 | NUR ---
PER RONY MAYFIELD TO OBTAIN CONSENT FOR L HIP DELONTE ARTHROPLASTY FOR SCHEDULED SURGERY ON 08/01/17. ORDERS CARRIED OUT. PT NPO.
--- NOTE | 2017-08-01 14:02 | NUR ---
VERBAL CONSENT GIVE BY PT SON ANAND AND PATIENT HERSELF. TWO RN WITNESS. YVONNE MANRIQUEZ AND I WITNESSED TO VERBAL CONSENT. PT UNABLE TO SIGN DUE TO CONDITION OF BEING WEAK. GOING TO L HIP DELONTE ARTHROPLASTY BY AT 5PM ON 08/01/17.
[2017-08-01] MEDS ORDERED: BUPIVACAINE 0.5 % PF 150 MG/30 ML VIAL ONE (14:36)
[2017-08-01] MEDS ORDERED: ANESTHESIA TRAY IN PYXIS 1 EA TRAY MC ONE ×2 (14:36→19:10)
[2017-08-01] MEDS ORDERED: BACITRACIN 50000 UNITS/VIAL ONE (14:36)
[2017-08-01 16:00] VITALS: BP 156/69
--- NOTE | 2017-08-01 16:47 | NUR ---
PT TAKEN TO PACU FOR SURGERY OF L HIP DELONTE ARTHROPLASTY WITH DR. ANSARI.
[2017-08-01] MEDS ORDERED: MIDAZOLAM HCL 2 MG/2ML VIAL ONE (17:17)
[2017-08-01] MEDS ORDERED: MORPHINE SULFATE INJ 10 MG/ML DISP.SYRIN ONE (17:17)
[2017-08-01] MEDS ORDERED: MORPHINE SULFATE/PF 10 MG/10ML (1MG/ML) AMPUL ONE (17:18)
--- NOTE | 2017-08-01 18:04 | NUR ---
MS RN: TRANSFER NOTE PER MD ORDER AND CONTROL INTEGRATION ENGINEER TO TRANSFER PT TO [facility] ROOM 108 AFTER SURGERY COMPLETE. GAVE REPORT TO SHAMEKA. PT WENT INTO OR TO DO A L HIP DELONTE ARTHROPLASTY BY DR. SALGADO. ALL BELONGINGS GIVEN TO ANAND SON. ANAND (SON) WAITING IN WAITING ROOM. PT LEFT TO SURGERY A/OX2-3. NO DISTRESS NOTED. PAIN CONTROLLED WITH PAIN MEDICATIONS. SKIN INTACT. ANURIC. LAST HD 07/31/18. 0 ML OUTPUT DUE TO BEING NPO. NPO BEFORE SURGERY. L FA #[phone] HL. SITE CLEAR AND PATENT. R UA AV SHUNT. DRESSING INTACT.
--- NOTE | 2017-08-01 19:33 | NUR ---
TELE-1/ACQUISITION ASSOCIATE PT ARRIVED FROM SURGERY ACCOMPANIED BY RECOVERY NURSE AND OR-TECH. PT ALERTx2, VSS. DRESSING TO LEFT HIP DRY AND INTACT. ABDUCTOR PILLOW IN PLACE. PT PLACED ON TELE MONITOR. WILL CONTINUE TO MONITOR THE PT CLOSELY.
[2017-08-01 20:00] VITALS: BP 170/59
[2017-08-01] MEDS ORDERED: AMBIEN 5 MG TABLET PO PRN (20:30)
[2017-08-01] MEDS ORDERED: ZOFRAN 4mg/2ML IV PRN (20:30)
[2017-08-01] MEDS ORDERED: TYLENOL 650 MG TABLET PO PRN (20:30)
[2017-08-01] MEDS ORDERED: SENOKOT 8.6 MG TABLET PO PRN (20:30)
[2017-08-01] MEDS ORDERED: COLACE 250 MG CAPSULE PO PRN (20:30)
[2017-08-01] MEDS ORDERED: DULCOLAX 10 MG/SUPP.RECT RC PRN (20:30)
[2017-08-01] MEDS: IV LR 1000 ML 1,000 ML IV PRN (20:52)
[2017-08-01] MEDS ORDERED: diphenhydrAMINE HCL 50 MG/ML VIAL IM PRN (21:00)
[2017-08-01] MEDS ORDERED: NALOXONE HCL 0.4 MG/ML AMPUL IV PRN (21:00)
[2017-08-02] VITALS (7 sets, daily range): BP systolic 113–156; BP diastolic 48–66
[2017-08-02] MEDS: BLOOD SUGAR DIAGNOSTIC 1 EACH STRIP IN SCH ×5 (00:28→23:53)
[2017-08-02] MEDS: ANCEF 1 G in IV D5W 50 ML IV SCH ×2 (02:03→10:37)
[2017-08-02] MEDS: HYDROCODONE/APAP 5/325MG 1 EACH TABLET PO PRN ×2 (06:21→23:38)
--- NOTE | 2017-08-02 08:00 | NUR ---
STITCH BONDING MACHINE DRAWER IN NOTE: RECEIVED PATIENT IN BED, ASLEEP, BUT AROUSABLE WHEN CALLING HER NAME. NOT ON ANY FORM OF DISTRESS. ON O2 2L/MIN VIA NC SATURATING 98%. (L) FA IV LINE NOTED PATENT AND INTACT INFUSING LR@ 50CC/HR. (R) UA AV SHUNT NOTED W/ DRESSING INTACT W/ BRUIT AND THRILL PRESENT. BONNER CATHETER IN PLACED W/ YELLOW URINE DRAINING TO GRAVITY. (L) HIP SX SITE NOTED W/ CLEAN DRESSING INTACT AND DRY. NOTED W/ ABDUCTION PILLOW IN BETWEEN HER LEGS. PATIENT DENIED PAIN. BED ALARM AND LOCKED AT ALL TIMES. CALL LIGHT WITHIN REACH. WILL HOLD BP MEDS DUE TO SCHEDULED DIALYSIS TODAY. AWAITING FOR HD NURSE.
[2017-08-02] MEDS: ATORVASTATIN 10 MG TABLET PO SCH (08:07)
[2017-08-02] MEDS: SEVELAMER CARBONATE 800 MG TABLET PO SCH ×3 (08:07→17:49)
[2017-08-02] MEDS: BUPROPION XL 150 MG TAB.ER.24 PO SCH (08:08)
[2017-08-02] MEDS: CALCITRIOL 0.25 MCG CAPSULE PO SCH (08:08)
[2017-08-02] MEDS: AMLODIPINE BESYLATE 10 MG TABLET PO SCH ×2 (08:08→10:00)
[2017-08-02] MEDS: ISOSORBIDE MONONITRATE (30MG) 30 MG TAB.SR.24H PO SCH ×2 (08:09→10:00)
--- NOTE | 2017-08-02 12:30 | NUR ---
BOATSWAINS MATE NOTE: PATIENT'S BONNER CATHETER WAS REMOVED PER DR. OCASIO'S ORDER. WILL MONITOR FOR ANY EPISODE OF URINARY RETENTION.
[2017-08-02 14:03] LABS: BASOPHILS % (AUTO) 0.3 % (0.0-2.0); EOSINOPHILS # (AUTO) 0.1 /CMM (0.0-0.7); EOSINOPHILS % (AUTO) 1.3 % (0.0-6.0); HEMATOCRIT 27 % (33-45); HEMOGLOBIN 8.9 g/dL (11.5-14.8); LYMPHOCYTES # (AUTO) 0.6 /CMM (0.8-4.8); LYMPHOCYTES % (AUTO) 5.9 % (20.0-44.0); MEAN CORPUSCULAR HEMOGLOBIN 32 PG (26.0-33.0); MEAN CORPUSCULAR HGB CONC 34 g/dl (31.0-36.0); MEAN CORPUSCULAR VOLUME 94 fL (82-100); MONOCYTES # (AUTO) 0.9 /CMM (0.1-1.30); MONOCYTES % (AUTO) 9.5 % (2.0-12.0); NEUTROPHILS # (AUTO) 7.9 /CMM (1.8-8.9); PLATELET COUNT (AUTO) 143 /CMM (150-450); RDW COEFFICIENT OF VARIATION 15.5 (11.5-15.0); RED BLOOD CELL COUNT(AUTO) 2.82 MIL/uL (4.0-5.2); WHITE BLOOD COUNT (AUTO) 9.5 K/uL (4.3-11.0)
[2017-08-02 14:37] LABS: CALCIUM, SERUM 8.5 mg/dL (8.5-10.1); CARBON DIOXIDE 26 mmol/L (21-32); CHLORIDE 102 mmol/L (98-107); CREATININE 6.6 mg/dL (0.6-1.3); GLUCOSE 136 mg/dL (74-106); POTASSIUM 5.9 mmol/L (3.5-5.1); SODIUM SERUM 139 mmol/L (136-145); UREA NITROGEN, BLOOD 45 mg/dL (7-18)
--- NOTE | 2017-08-02 15:00 | NUR ---
PURCHASING/RECEIVING NOTE: PATIENT'S BLADDER WAS SCANNED AND IT WAS NOTED W/ 12CC OF URINE. NO BLADDER DISTENTION NOTED.
--- NOTE | 2017-08-02 16:00 | NUR ---
OSTEOPATHIC PHYSICIAN NOTE: PATIENT'S TEMP WAS NOTED 100.3F. COOLING MEASURES PROVIDED. AND WILL RECHECK AGAIN THE TEMP. NOT WARRANTED TO ADMINISTER TYLENOL DUE TO PARAMETER.
[2017-08-02] MEDS ORDERED: MORPHINE SULFATE INJ 4 MG/ML DISP.SYRIN IV PRN (17:00)
--- NOTE | 2017-08-02 17:00 | NUR ---
DEVELOPMENT ASSOCIATE NOTE: PATIENT'S TEMP WAS 99.5F AND WILL CONTINUE TO PROVIDE W/ COOLING MEASURES.
--- NOTE | 2017-08-02 19:45 | NUR ---
TRAY SERVER NOTE: PATIENT IN BED, ASLEEP, BUT AROUSABLE WHEN CALLING HER NAME. NOT ON ANY FORM OF DISTRESS. ON O2 2L/MIN VIA NC SATURATING 99%. (L) FA IV LINE NOTED PATENT AND INTACT. ON LEARNING CONSULTANT, SR HR= 70. (R) UA AV SHUNT NOTED W/ DRESSING INTACT W/ BRUIT AND THRILL PRESENT. (L) HIP SX SITE NOTED W/ CLEAN DRESSING INTACT AND DRY. NOTED W/ ABDUCTION PILLOW IN BETWEEN HER LEGS. PATIENT DENIED PAIN. BED ALARM AND LOCKED AT ALL TIMES. CALL LIGHT WITHIN REACH. REPORT GIVEN TO PM SHIFT NURSE FOR CONTINUITY OF CARE.
--- NOTE | 2017-08-02 20:23 | NUR ---
BORDER MEASURER AND CUTTER NOTE: RECEIVED PATIENT IN BED, ASLEEP, BUT AROUSABLE WHEN CALLING HER NAME. NOT ON ANY FORM OF DISTRESS. ON O2 2L/MIN VIA NC SATURATING 98%. (L) FA IV LINE NOTED PATENT AND INTACT INFUSING LR@ 50CC/HR. (R) UA AV SHUNT NOTED W/ DRESSING INTACT W/ BRUIT AND THRILL PRESENT. BONNER CATHETER IN PLACED W/ YELLOW URINE DRAINING TO GRAVITY. (L) HIP SX SITE NOTED W/ CLEAN DRESSING INTACT AND DRY. NOTED W/ ABDUCTION PILLOW IN BETWEEN HER LEGS. PATIENT DENIED PAIN. BED ALARM AND LOCKED AT ALL TIMES. CALL LIGHT WITHIN REACH. WILL HOLD BP MEDS DUE TO SCHEDULED DIALYSIS TODAY. AWAITING FOR HD NURSE. Addendum: 08/02/17 at 2026 by BILL PETERSON RN ERROR IN TIME
[2017-08-02] MEDS: IV LR 1000 ML 1,000 ML IV PRN (21:23)
[2017-08-02] MEDS: INSULIN REGULAR, HUMAN 100 UNIT/ML 3 ML VIAL SQ PRN (23:54)
[2017-08-03] VITALS: BP_SYST 166; BP_SYST 178; BP_DIAS 58; BP_DIAS 71
[2017-08-03 04:00] VITALS: BP_SYST 131; BP_SYST 140; BP_SYST 169; BP_DIAS 2; BP_DIAS 71; BP_DIAS 72; BP_DIAS 75
--- NOTE | 2017-08-03 05:35 | NUR ---
RN NOTES IN BED RESTING COMFORTABLY WITH NO RESPIRATORY DISTRESS OR SHORTNESS OF BREATH. BREATHING EVEN AND UNLABORED. ALERT AND RESPONSIVE. NO PHYSICAL MANIFESTATION OF PAIN OF THIS TIME. VITAL SIGNS WNL. KEPT CLEAN AND DRY
[2017-08-03] MEDS: BLOOD SUGAR DIAGNOSTIC 1 EACH STRIP IN SCH ×4 (06:14→23:19)
--- NOTE | 2017-08-03 07:30 | NUR ---
AUTOMOBILE CONTRACT CLERK NOTE: RECEIVED PATIENT IN BED, ASLEEP, BUT AROUSABLE WHEN CALLING HER NAME. S/P L HIP HEMIARTHROPLASTY BY DR. SALGADO 08/01/17, CDI DRESSING. ON O2 2L/MIN VIA NC, NOT IN ANY DISTRESS, TELEMETRY READS SR HR 76, NO SIGNS OF PAIN OR DISCOMFORT AT THIS TIME, (L) FA IV G20 WITH LR@ 50CC/HR INFUSING WELL, SITE CLEAR,M (R) UA AV SHUNT NOTED W/ DRESSING INTACT W/ BRUIT AND THRILL PRESENT. [facility], BED ALARM AND LOCKED AT ALL TIMES. SAFETY MEASURES IN PLACE. CALL LIGHT WITHIN REACH. WILL CONT TO MONITOR.
[2017-08-03 08:00] VITALS: BP 157/51
[2017-08-03] MEDS: SEVELAMER CARBONATE 800 MG TABLET PO SCH ×3 (09:27→17:20)
[2017-08-03] MEDS: AMLODIPINE BESYLATE 10 MG TABLET PO SCH (09:28)
[2017-08-03] MEDS: BUPROPION XL 150 MG TAB.ER.24 PO SCH (09:28)
[2017-08-03] MEDS: CALCITRIOL 0.25 MCG CAPSULE PO SCH (09:28)
[2017-08-03] MEDS: ATORVASTATIN 10 MG TABLET PO SCH (09:28)
[2017-08-03] MEDS: ISOSORBIDE MONONITRATE (30MG) 30 MG TAB.SR.24H PO SCH (09:28)
--- NOTE | 2017-08-03 09:30 | NUR ---
SAFE EXPERT NOTES DUE MEDS GIVEN.
[2017-08-03 12:00] VITALS: BP 134/53
--- NOTE | 2017-08-03 12:21 | NUR ---
HOSE MENDER NOTES ACCCUCHECK DONE. BS 115 MG/DL. NO INSULIN COVERAGE .
[2017-08-03 15:37] LABS: BASOPHILS % (AUTO) 0.3 % (0.0-2.0); EOSINOPHILS # (AUTO) 0.2 /CMM (0.0-0.7); HEMATOCRIT 28 % (33-45); HEMOGLOBIN 9.4 g/dL (11.5-14.8); LYMPHOCYTES # (AUTO) 0.8 /CMM (0.8-4.8); LYMPHOCYTES % (AUTO) 8.3 % (20.0-44.0); MEAN CORPUSCULAR HEMOGLOBIN 32 PG (26.0-33.0); MEAN CORPUSCULAR HGB CONC 33 g/dl (31.0-36.0); MEAN CORPUSCULAR VOLUME 95 fL (82-100); MONOCYTES # (AUTO) 0.9 /CMM (0.1-1.30); NEUTROPHILS # (AUTO) 7.6 /CMM (1.8-8.9); NEUTROPHILS % (AUTO) 79.4 % (43.0-81.0); PLATELET COUNT (AUTO) 150 /CMM (150-450); RDW COEFFICIENT OF VARIATION 15.2 (11.5-15.0); RED BLOOD CELL COUNT(AUTO) 2.98 MIL/uL (4.0-5.2); WHITE BLOOD COUNT (AUTO) 9.5 K/uL (4.3-11.0)
[2017-08-03 16:00] VITALS: BP 137/54
--- NOTE | 2017-08-03 16:49 | NUR ---
TELE R NOTES DR. OCASIO NOTIFIED ABOUT PATIENT HAD TEMPERATURE OF 100.1 TYLENOL 650 MG GIVEN.
--- NOTE | 2017-08-03 17:26 | NUR ---
BOIL OFF MACHINE OPERATOR CLOTH NOTES ACCUCHECK DONE. BS 119 MG/DL. NO INSULIN COVERAGE .
--- NOTE | 2017-08-03 17:30 | NUR ---
DELINQUENT TAX COLLECTION ASSISTANT NOTES TEMPERATURE RECHECKED - 99.0 F. AMARJIT JACKSON. OKAYED TO [facility].
--- NOTE | 2017-08-03 19:25 | NUR ---
PURCHASING BUYER CLOSING NOTE: PATIENT RESTING IN BED, ASLEEP, BUT AROUSABLE WHEN CALLING HER NAME. S/P L HIP HEMIARTHROPLASTY BY DR. SALGADO 08/01/17, CDI DRESSING. ON O2 2L/MIN VIA NC, NOT IN ANY DISTRESS, TELEMETRY READS SR HR 77, NO SIGNS OF PAIN OR DISCOMFORT AT THIS TIME, (L) FA IV G20 WITH LR@ 50CC/HR INFUSING WELL, SITE CLEAR,M (R) UA AV SHUNT NOTED W/ DRESSING INTACT W/ BRUIT AND THRILL PRESENT. [facility], BED ALARM AND LOCKED AT ALL TIMES. SAFETY MEASURES IN PLACE. CALL LIGHT WITHIN REACH. PM CARE DONE. ALL NEEDS MET. WILL ENDORSE TO NEXT SHIFT FOR NICK.
--- NOTE | 2017-08-03 19:27 | NUR ---
SENIOR JAVA UI DEVELOPER NOTES PATIENT TO BE DISCHARGED BACK TO ASS[facility]ED LIVING PER MD. AMBULANCE WOODWIND REEDS CUTTER 1999.
[2017-08-03 20:00] VITALS: BP 145/58
--- NOTE | 2017-08-03 21:00 | NUR ---
RN NOTES RECEIVED PATIENT AWAKE IN BED, FAMILY AT BEDSIDE, WITH NO RESPIRATORY DISTRESS OR SHORTNESS OF BREATH. BREATHING EVEN AND UNLABORED. O2 AT 2LPM VIA NASAL CANULA WELL TOLERATED. PATIENT IS SUPPOSED TO BE DISCHARGED TO HOME, BUT HOME IS ASSISTED LIVING FACILITY. FAMILY REQUESTED THAT PATIENT BE DISCHARGED TO REHABILITATION FACILITY. CALLED MD. SPOKE WITH DR LANDA WITH ORDERS TO HOLD DISCHARGE AND COORDINATE WITH CASE MANAGEMENT FOR DISCHARGE TO SNF.
[2017-08-03] MEDS: IV LR 1000 ML 1,000 ML IV PRN (21:33)
[2017-08-03] MEDS: INSULIN REGULAR, HUMAN 100 UNIT/ML 3 ML VIAL SQ PRN (23:20)
[2017-08-04] VITALS: BP 131/79
[2017-08-04 04:00] VITALS: BP 168/68
[2017-08-04] MEDS: BLOOD SUGAR DIAGNOSTIC 1 EACH STRIP IN SCH ×3 (05:56→17:55)
[2017-08-04] MEDS: INSULIN REGULAR, HUMAN 100 UNIT/ML 3 ML VIAL SQ PRN (05:56)
--- NOTE | 2017-08-04 07:49 | NUR ---
JIGGER OPERATOR NOTE: RECEIVED PATIENT IN BED, ASLEEP, BUT AROUSABLE TO VERBAL STIMULI. IN NO ACUTE DISTRESS OR DISCOMFORT, NO S/S OF PAIN. S/P L HIP HEMIARTHROPLASTY WITH PILLOW ABDUCTOR BETWEEN LEGS, CDI DRESSING. ON O2 2L/MIN VIA NC, ON TELE MONITOR READING SR HR 83, IV TO LEFT FA INFUSING LR@ 50CC/HR INFUSING WELL, SITE CLEAR,M (R) UA AV SHUNT NOTED W/ DRESSING INTACT W/ BRUIT AND THRILL PRESENT. SAFETY MEASURES RENDERED, BED ALARM ON AND LOCKED AT ALL TIMES. SAFETY MEASURES IN PLACE. CALL LIGHT WITHIN REACH. WILL CONT TO MONITOR.
[2017-08-04 08:00] VITALS: BP 167/74
--- NOTE | 2017-08-04 08:57 | NUR ---
TELE/RN NOTES PATIENT RECEIVING DIALYSIS AT THIS TIME.
[2017-08-04] MEDS: CALCITRIOL 0.25 MCG CAPSULE PO SCH (08:59)
[2017-08-04] MEDS: BUPROPION XL 150 MG TAB.ER.24 PO SCH (09:00)
[2017-08-04] MEDS: SEVELAMER CARBONATE 800 MG TABLET PO SCH ×3 (09:00→17:55)
[2017-08-04] MEDS: ATORVASTATIN 10 MG TABLET PO SCH (09:00)
[2017-08-04] MEDS: ISOSORBIDE MONONITRATE (30MG) 30 MG TAB.SR.24H PO SCH (09:00)
[2017-08-04] MEDS: AMLODIPINE BESYLATE 10 MG TABLET PO SCH (09:04)
[2017-08-04] MEDS: HYDROCODONE/APAP 5/325MG 1 EACH TABLET PO PRN (11:37)
--- NOTE | 2017-08-04 11:40 | NUR ---
TELE/RN NOTES PATIENT SITTING UP IN BED WITH PHYSICAL THERAPY , COMPLAINING OF EXCRUCIATING HIP PAIN. ADMINISTERED NORCO 5-325MG 2 TAB BY MOUTH ORDERED BY MD. WILL MONITOR AND ASSESS PATIENT FOR MEDICATION EFFECTIVENESS
[2017-08-04 12:00] VITALS: BP 136/73
--- NOTE | 2017-08-04 13:20 | NUR ---
AUDIO VISUAL COORDINATORINDUSTRIAL SPRAY PAINTER AND DR. OCASIO NOTIFIED OF PATIENT PENDING DISCHARGE DUE TO SNF PLACEMENT. ATTEMPTED MULTIPLE CALLS TO SON. WILL FOLLOW UP
[2017-08-04] MEDS: IV LR 1000 ML 1,000 ML IV PRN (15:39)
--- NOTE | 2017-08-04 19:36 | NUR ---
TELE/CLOSING NOTES PATIENT RESTING IN BED COMFORTABLY, WITH SON AT BEDSIDE. DISCUSSED DISCHARGE INSTRUCTIONS WITH SON, ALL DISCHARGE FORMS COMPLETED, SIGNED, AND PLACED IN CHART. PATIENTS SACRAL WOUND PICTURE TAKEN AND PLACED IN CHART, DISCUSSED WITH SON WOUND STATUS AND DEVELOPMENT. IV REMOVED AND COVER PROPERLY. CALLED TAINA DUNN AND REPORT GIVEN TO NURSE VALLES. AMBULANCE CURER FOAM RUBBER TIME 7:15-7:30. ENDORSED CARE TO SCOURING MACHINE OPERATOR FOR NICK.
--- NOTE | 2017-08-04 20:07 | NUR ---
RN NOTES IN BED, SON AT BEDSIDE WITH NO RESPIRATORY DISTRESS OR SHORTNESS OF BREATH. BREATHING EVEN AND UNLABORED. NO PHYSICAL MANIFESTATION OF PAIN OR DISCOMFORT. VITAL SIGNS WNL. ALERT AND ORIENTED. ABLE TO VERBALIZE NEEDS. PICKED UP BY AMBULANCE FOR TRANSFER TO [facility] AT 2000 IN STABLE CONDITION.
[2017-08-07 13:17] LABS: CALCITRIOL VIT D,1, 25 DIHYDRO 7.3 pg/mL (19.9-79.3)
== END 2017-08-04 20:00 | disposition home health service (06) | DRG 469 ==
LOC: ER 20:44 → MEDSG2 23:09 → TELE1 08-01 18:49
PROVIDERS: ADMIT Nurse Practitioner Acute Care; ATTEND Nurse Practitioner Acute Care
PROC: 5A1D70Z Performance of Urinary Filtration, Intermittent, Less than 6 Hours Per Day (ICD-10-PCS; 2017-07-31)
PROC: 5A1D70Z Performance of Urinary Filtration, Intermittent, Less than 6 Hours Per Day (ICD-10-PCS; 2017-07-31)
PROC: 5A1D70Z Performance of Urinary Filtration, Intermittent, Less than 6 Hours Per Day (ICD-10-PCS; 2017-07-31)
PROC: 0SRS0JZ Replacement of Left Hip Joint, Femoral Surface with Synthetic Substitute, Open Approach (ICD-10-PCS; principal; 2017-08-01 17:00)
DX: S72.012A Unspecified intracapsular fracture of left femur, initial encounter for closed fracture (principal); N18.6 End stage renal disease; E11.22 Type 2 diabetes mellitus with diabetic chronic kidney disease; E87.5 Hyperkalemia; D68.59 Other primary thrombophilia; E44.1 Mild protein-calorie malnutrition; I13.11 Hypertensive heart and chronic kidney disease without heart failure, with stage 5 chronic kidney disease, or end stage renal disease; G35 Multiple sclerosis; W18.30XA Fall on same level, unspecified, initial encounter; Y92.89 Other specified places as the place of occurrence of the external cause; W07.XXXA Fall from chair, initial encounter; Y92.129 Unspecified place in nursing home as the place of occurrence of the external cause; I25.10 Atherosclerotic heart disease of native coronary artery without angina pectoris; E78.5 Hyperlipidemia, unspecified; I70.0 Atherosclerosis of aorta; J44.9 Chronic obstructive pulmonary disease, unspecified; M85.80 Other specified disorders of bone density and structure, unspecified site; Z99.3 Dependence on wheelchair; Z99.2 Dependence on renal dialysis; Z87.891 Personal history of nicotine dependence; Z83.3 Family history of diabetes mellitus; K21.9 Gastro-esophageal reflux disease without esophagitis; M51.36 Other intervertebral disc degeneration, lumbar region; D64.9 Anemia, unspecified; D25.9 Leiomyoma of uterus, unspecified; Z88.8 Allergy status to other drugs, medicaments and biological substances; Z88.0 Allergy status to penicillin; Z91.013 Allergy to seafood; Z79.4 Long term (current) use of insulin; Z79.899 Other long term (current) drug therapy; Z91.81 History of falling
CPT/HCPCS: 36415; 71045-TC; 72170-TC; 72192-TC; 73030-TC; 80048-TC; 80053-TC; 80061-TC; 81000-TC; 82306; 82652; 82962-TC; 83735-TC; 83970; 84100-TC; 84484-TC; 85025-TC; 85730-TC; 86850-TC; 87081-TC; 88305-TC; 88311-TC; 90935-TC; 97110-TC; 97530-TC; A4606; J0690; J0885; J1815; J2250; J2270; J2274; J2405; J3490; J7030; J7042; J7060; J7120; Z7610

== ENCOUNTER 2018-05-29 05:38 | Inpatient (IN) | payer MEDICARE, OTHER ==
[2018-05-29] VITALS (46 sets, daily range): BP systolic 114–240; BP diastolic 50–118
[~2018-05-29] VITALS: Ht 160 cm; Wt 62.6 kg
[~2018-05-29 05:38] MED LIST changes: -AMLO10TA2 PO; +AMLO10TA7 PO; -LOSA50TA21 PO; +LOSA50TA39 PO
--- NOTE | 2018-05-29 05:40 | NUR ---
PT BIBRA C/O "SOB SINCE I WAKE UP AND I VOMITTED ONCE THIS MORNING". PT ON CPAP ENGLISH LANGUAGE ARTS TEACHER. NO O2 SAT PROVIDED ENGLISH LANGUAGE ARTS TEACHER. PT IS AOX3. PT IS ON MONITOR IN BED 8. WILL CONTINUE TO MONITOR.
--- NOTE | 2018-05-29 05:47 | NUR ---
RT AT BEDSIDE
--- NOTE | 2018-05-29 05:49 | NUR ---
TECH AT BEDSIDE FOR EKG
[2018-05-29] MEDS ORDERED: NITROGLYCERIN PACKET 1 GM PACKET TD ONE (06:00)
[2018-05-29] MEDS ORDERED: ENALAPRILAT DIHYD. (2.5MG/ML) 1.25 MG/ML VIAL IV ONE ×2 (06:00→06:02)
[2018-05-29] MEDS ORDERED: FUROSEMIDE 40 MG/4 ML VIAL IV ONE (06:00)
[2018-05-29] MEDS ORDERED: FUROSEMIDE 40 MG/4 ML VIAL ONE (06:02)
[2018-05-29] MEDS ORDERED: NITROGLYCERIN PACKET 1 GM PACKET ONE (06:03)
[2018-05-29] MEDS ORDERED: NTG 50 MG/D5W250 ML BOTTL 250 ML IV ONE ×2 (06:12→06:30)
[2018-05-29 06:14] LABS: BASOPHILS % (AUTO) 0.4 % (0.0-2.0); EOSINOPHILS % (AUTO) 3.8 % (0.0-6.0); HEMATOCRIT 30 % (33-45); HEMOGLOBIN 10.3 g/dL (11.5-14.8); LYMPHOCYTES # (AUTO) 1.6 /CMM (0.8-4.8); LYMPHOCYTES % (AUTO) 17.6 % (20.0-44.0); MEAN CORPUSCULAR HGB CONC 34 g/dl (31.0-36.0); MEAN CORPUSCULAR VOLUME 96 fL (82-100); MONOCYTES # (AUTO) 0.6 /CMM (0.1-1.30); MONOCYTES % (AUTO) 6.6 % (2.0-12.0); NEUTROPHILS # (AUTO) 6.4 /CMM (1.8-8.9); NEUTROPHILS % (AUTO) 71.6 % (43.0-81.0); PLATELET COUNT (AUTO) 204 /CMM (150-450); RED BLOOD CELL COUNT(AUTO) 3.15 MIL/uL (4.0-5.2)
[2018-05-29 06:22] LABS: CALCIUM, SERUM 8.2 mg/dL (8.5-10.1); CARBON DIOXIDE 26 mmol/L (21-32); CHLORIDE 101 mmol/L (98-107); CREATININE 4.7 mg/dL (0.6-1.3); GLUCOSE 184 mg/dL (74-106); POTASSIUM 4.8 mmol/L (3.5-5.1); SODIUM SERUM 139 mmol/L (136-145); UREA NITROGEN, BLOOD 38 mg/dL (7-18)
[2018-05-29 06:35] LABS: ALANINE AMINOTRANSFERASE 19 U/L (12-78); ALBUMIN 3.6 g/dL (3.4-5.0); ALKALINE PHOSPHATASE 221 U/L (46-116); ASPARTATE AMINOTRANSFERASE 17 U/L (15-37); BILIRUBIN,DIRECT 0.2 mg/dL (0.0-0.2); BILIRUBIN,TOTAL 0.6 mg/dL (0.2-1.0)
--- NOTE | 2018-05-29 06:35 | NUR ---
URINE COLLECTED AND SENT TO LAB
[2018-05-29 06:39] LABS: ABG BASE EXCESS 1.4 mmol/L; ABG OXYGEN SATURATION 95.9 % (92.0-98.5); ABG PCO2 43.6 mmHg (35.0-45.0); ABG PO2 86.2 mmHg (75.0-100.0); AaDO2 583.2 mmHg; COHb 0.9 % (0.5-1.5); MetHb 0.1 % (0.0-1.5); O2Hb 94.9 % (94.0-97.0); PEEP,BG 5 cm H2O; SITE, ABG Left Radial; VENT MODE, BG BIPAP
[2018-05-29 07:05] LABS: B-TYPE NATRIURETIC PEPTIDE 45317 PG/ML (0-125)
--- NOTE | 2018-05-29 07:30 | NUR ---
ENDORSED TO MITRA CRABTREE FOR NICK
--- NOTE | 2018-05-29 08:40 | NUR ---
REPORT GIVEN TO MELANI MANRIQUEZ FOR NICK
--- NOTE | 2018-05-29 09:12 | NUR ---
INITIAL CAR RENTAL DELIVERER NOTE RCVD PT AWAKE AND ALERT, ON BIPAP TOLERATING WELL. NO S/O DISTRESS OBSERVED. SR ON MONITOR. BONNER TO GRAVITY DRAINING CLEAR, YELLOW URINE. SKIN INTACT EXCEPT FOR SOME BLANCHABLE REDNESS OVER SACRAL/BUTTOCKS AREA, PICTURES TAKEN PER PROTOCOL. LEFT HAND IV C/D/I/PATENT. NO S/O INFILTRATION/PHLEBITIS OBSERVED UPON FLUSHING. NITRO DRIP INFUSING. PT HYPERTENSIVE ISBP 170's. WILL CONTINUE TO MONITOR PT FOR SAFETY AND COMFORT. BED IN LOW AND LOCKED POSITION. CALL LIGHT WITHIN REACH.
[2018-05-29] MEDS ORDERED: CALCITRIOL 0.25 MCG CAPSULE PO SCH (10:00)
[2018-05-29] MEDS ORDERED: Z GUARD REMEDY 2 OZ OINT TP PRN (10:00)
[2018-05-29] MEDS ORDERED: HYDROCODONE/APAP 5/325MG 1 EACH TABLET PO PRN (10:00)
[2018-05-29] MEDS ORDERED: MAG HYDROX/AL HYDROX/SIMETH 30 ML UDC PO PRN (10:00)
[2018-05-29] MEDS ORDERED: ZOLPIDEM TARTRATE 5 MG TABLET PO PRN (10:00)
[2018-05-29] MEDS ORDERED: MAGNESIUM HYDROXIDE 30 ML UDC PO PRN (10:00)
[2018-05-29] MEDS ORDERED: ACETAMINOPHEN 325 MG TABLET PO PRN (10:00)
[2018-05-29] MEDS ORDERED: GUAIFENESIN 300 MG/15 ML UDC PO PRN (10:00)
[2018-05-29] MEDS ORDERED: ONDANSETRON HCL/PF 4 MG/2 ML VIAL IVP PRN (10:00)
[2018-05-29] MEDS ORDERED: LABETALOL HCL IV 100MG VIAL IV PRN (10:00)
[2018-05-29] MEDS ORDERED: DEXTROSE 50%-WATER 50 ML DISP.SYRIN IV PRN (10:30)
[2018-05-29] MEDS: FUROSEMIDE 40 MG/4 ML VIAL IV SCH ×2 (11:12→17:11)
[2018-05-29] MEDS: ALBUTEROL FS 2.5 MG/3 ML VIAL.NEB NEB SCH ×3 (12:06→20:21)
--- NOTE | 2018-05-29 12:06 | NUR ---
RT PATIENT AWAKE, ALERT, ZERO SOB, ON 3L N.C TYRONE WELL. PATIENT WISHES TO NOT HAVE ABG DONE, SHE SAYS SHE FEELS FINE.
[2018-05-29] MEDS: hydrALAZINE HCL 50 MG TABLET PO SCH ×2 (12:24→17:11)
[2018-05-29] MEDS: SEVELAMER CARBONATE 800 MG TABLET PO SCH ×2 (12:24→17:10)
[2018-05-29] MEDS: BLOOD SUGAR DIAGNOSTIC 1 EACH STRIP VI SCH ×3 (12:24→21:16)
[2018-05-29] MEDS: LISINOPRIL (20MG) 20 MG TABLET PO SCH (12:25)
[2018-05-29] MEDS: AMLODIPINE BESYLATE 10 MG TABLET PO SCH (12:25)
[2018-05-29] MEDS ORDERED: LEVOFLOXACIN 750 MG /D5W 150ML 750 MG in PREMIX 1 EA IV ONE (13:00)
--- NOTE | 2018-05-29 13:14 | NUR ---
PLANT SAFETY LEADER NOTE SPOKE WITH DR. QUEZADA PT WILL BE DIALYZED TODAY, HE WAS INFORMED OF PT'S ELEVATED BP HE RECOMMENDED NOT TO WORRY ABOUT IT. DR. CURRIE DISCONTINUED NITRO DRIP AND RECOMMENDED TO GIVE PT HER AM MEDS SINCE SHE MISSED THEM THIS AM. THIS WAS DONE AND BP BEING CLOSELY MONITORED.
[2018-05-29] MEDS: ATORVASTATIN 10 MG TABLET PO SCH (17:10)
--- NOTE | 2018-05-29 18:52 | NUR ---
NARRATIVE WRITER NOTE PT OFF BIPAP SINCE THIS AM TOLERATING O2 VIA NC WELL. NO S/O DISTRESS OBSERVED, VITALS REMAIN STABLE, SBP ELEVATED AT TIMES. NOT MEETING PARAMETER FOR PRN BLOOD PRESSURE MED. PM BP MEDS GIVEN WILL ENDORSE TO HEALTH CARE MANAGER RN FOR CONTINUITY OF CARE. PT UNDERWENT DIALYSIS TOLERATED WELL 2L REMOVED. BONNER TO GRAVITY WITH CLEAR, YELLOW URINE DRAINING. RIGHT HAND C/D/I/PATENT. NO S/O INFILTRATION/PHLEBITIS OBSERVED UPON FLUSHING. CALL LIGHT WITHIN REACH. BED IN LOW AND LOCKED POSITION. HEAD OF BED ELEVATED. TOLERATING PO INTAKE WELL. PER CUBA, RT PT DECLINED TO HAVE ABG DONE THIS AM. O2 WAS TITRATED DOWN FROM 6L TO 3L AND PT APPEARS IN NO DISTRESS.
--- NOTE | 2018-05-29 20:00 | NUR ---
WASHHOUSE WORKER - NOTES - PT OFF BIPAP SINCE THIS AM TOLERATING 3L NC WELL. NO S/O DISTRESS OBSERVED, VITALS REMAIN STABLE, SBP ELEVATED AT TIMES WILL GIVE LABETALOL FOR SBP > 170. BONNER TO GRAVITY WITH CLEAR, YELLOW URINE DRAINING. RIGHT HAND C/D/I/PATENT. NO S/O INFILTRATION/PHLEBITIS OBSERVED UPON FLUSHING. CALL LIGHT WITHIN REACH. BED IN LOW AND LOCKED POSITION. HEAD OF BED ELEVATED. TOLERATING PO INTAKE WELL.
[2018-05-29] MEDS: *INSULIN REGULAR(HUMULIN R)HUM 100 UNIT/ML VIAL SQ PRN (21:16)
--- NOTE | 2018-05-29 21:17 | NUR ---
BLOOD GLUCOSE 179, PT REFUSED INSULIN COVERAGE, SHE SAYS SOMETIMES HER BLOOD GLUCOSE DROPS VERY LOW WITH INSULIN COVERAGE.
[2018-05-30] VITALS (51 sets, daily range): BP systolic 111–200; BP diastolic 43–101
[2018-05-30 04:40] LABS: BASOPHILS # (AUTO) 0.1 /CMM (0.0-0.2); BASOPHILS % (AUTO) 0.7 % (0.0-2.0); HEMATOCRIT 27 % (33-45); HEMOGLOBIN 9.4 g/dL (11.5-14.8); LYMPHOCYTES # (AUTO) 1.3 /CMM (0.8-4.8); LYMPHOCYTES % (AUTO) 16.8 % (20.0-44.0); MEAN CORPUSCULAR HGB CONC 34 g/dl (31.0-36.0); MEAN CORPUSCULAR VOLUME 96 fL (82-100); MONOCYTES # (AUTO) 0.7 /CMM (0.1-1.30); MONOCYTES % (AUTO) 9.3 % (2.0-12.0); NEUTROPHILS # (AUTO) 5.3 /CMM (1.8-8.9); NEUTROPHILS % (AUTO) 70.2 % (43.0-81.0); PLATELET COUNT (AUTO) 160 /CMM (150-450); RED BLOOD CELL COUNT(AUTO) 2.84 MIL/uL (4.0-5.2); WHITE BLOOD COUNT (AUTO) 7.6 K/uL (4.3-11.0)
[2018-05-30 05:02] LABS: CALCIUM, SERUM 8.3 mg/dL (8.5-10.1); CARBON DIOXIDE 27 mmol/L (21-32); CHLORIDE 101 mmol/L (98-107); CREATININE 4.2 mg/dL (0.6-1.3); GLUCOSE 97 mg/dL (74-106); POTASSIUM 4.5 mmol/L (3.5-5.1); SODIUM SERUM 137 mmol/L (136-145); UREA NITROGEN, BLOOD 33 mg/dL (7-18)
[2018-05-30 05:08] LABS: CHOLESTEROL 108 mg/dL (<200); HDL CHOLESTEROL 62 mg/dL (40-60); LDL 41 mg/dL (0-99); TRIGLYCERIDES 57 mg/dL (30-150)
--- NOTE | 2018-05-30 06:47 | NUR ---
PT BP ELEVATED, PT DENIES PAIN AND ANXIETY, I TRIED TO GIVE LABETALOL, BUT IT WAS NOT STOCKED IN THE ICU, NOT IN THE ER AND NOT IN THE NIGHT LOCKER
[2018-05-30] MEDS: BLOOD SUGAR DIAGNOSTIC 1 EACH STRIP VI SCH ×4 (07:42→21:24)
--- NOTE | 2018-05-30 07:43 | NUR ---
INITIAL STUDIO OPERATION ENGINEER NOTE RCVD PT AWAKE AND ALERT , SHOWING NO S/O DISTRESS/PAIN AT THIS TIME. SR ON MONITOR REMAINS ON NC TOLERATING WELL. BONNER TO GRAVITY DRAINING YELLOW URINE WITH SEDIMENT. IV SITE C/D/I/PATENT. NO S/O INFILTRATION/PHLEBITIS OBSERVED UPON FLUSHING. WILL CONTINUE TO MONITOR PT FOR SAFETY AND COMFORT. BED IN LOW AND LOCKED POSITION. CALL LIGHT WITHIN REACH.
[2018-05-30] MEDS: BUPROPION XL 150 MG TAB.ER.24 PO SCH ×2 (08:03→08:41)
[2018-05-30] MEDS: FUROSEMIDE 40 MG/4 ML VIAL IV SCH (08:03)
[2018-05-30] MEDS: SEVELAMER CARBONATE 800 MG TABLET PO SCH ×3 (08:03→18:27)
[2018-05-30] MEDS: AMLODIPINE BESYLATE 10 MG TABLET PO SCH (08:06)
[2018-05-30] MEDS: LISINOPRIL (20MG) 20 MG TABLET PO SCH (08:06)
[2018-05-30] MEDS: hydrALAZINE HCL 50 MG TABLET PO SCH ×3 (08:06→16:49)
[2018-05-30] MEDS: ISOSORBIDE MONONITRATE (30MG) 30 MG TAB.SR.24H PO SCH (08:08)
--- NOTE | 2018-05-30 08:14 | NUR ---
GRANITE SETTER NOTE PT GIVEN AM BP MEDS BP REMAINS ELEVATED SBP 200 AT 0800. SPOKE WITH MIREYA, PHARMACIST REGARDING PRN LABETALOL IVP. SHE WILL SEND ME A DOSE TO HAVE IN CASE PT DOES NOT RESPOND TO AM MEDS. WILL CONTINUE TO MONITOR.
[2018-05-30] MEDS: ALBUTEROL FS 2.5 MG/3 ML VIAL.NEB NEB SCH ×4 (08:17→19:12)
[2018-05-30] MEDS ORDERED: LABETALOL 20 MG/4 ML VIAL IV PRN (08:30)
--- NOTE | 2018-05-30 08:42 | NUR ---
MEDICATION NOTE PT STATES THAT SHE DOES NOT TAKE ANY MORE INSULIN OR WELLBUTRIN. THESE MEDICATIONS WERE THEREFORE HELD AND NOT GIVEN TO PT. WILL COMMUNICATE WITH MD DURING ROUNDS.
[2018-05-30] MEDS ORDERED: AMLODIPINE BESYLATE 10 MG TABLET PO SCH (09:00)
[2018-05-30] MEDS ORDERED: INSULIN GLARGINE, 100 UNIT/ML CARTRIDGE SQ SCH (09:00)
[2018-05-30] MEDS: HEPARIN SODIUM, PORCINE 5000 UNITS/1 ML VIAL SQ SCH ×2 (12:41→21:14)
--- NOTE | 2018-05-30 16:41 | NUR ---
RN NOTES RECEIVED PATIENT A/O X3, ABLE TO MAKE NEEDS KNOWN, ON NASAL CANNULA, NO RESPIRATORY DISTRESS NOTED. NO SOB NOTED. IV LINES IN PLACE AND INTACT.PATIENT ORIENTED TO FLOOR. CALL LIGHT PLACE WITHIN REACH, SAFETY MEASURES OBSERVED AND PUT IN PLACE, WILL MONITOR
--- NOTE | 2018-05-30 16:41 | NUR ---
DESIGN LEAD NOTE PT'S CARE ENDORSED TO LAURA RN FOR CONTINUITY OF CARE. PT TRANSPORTED TO ROOM 116-1 VIA BED PER PROTOCOL. PT AND PT'S FAMILY AT BEDSIDE AWARE. PT TRANSPORTED WITH HER BELONGINGS. NO PERSONAL ITEMS LEFT BEHIND. PT REMAINED STABLE DURING TRANSPORT.
[2018-05-30] MEDS: ATORVASTATIN 10 MG TABLET PO SCH (18:27)
--- NOTE | 2018-05-30 19:30 | NUR ---
TELE1 RN NOTES RECEIVED ON BED A/O X3,BREATHING REGULAR NOT IN ANY FORM OF DISTRESS.BREATH SOUNDS I,PROVING FROM CONGESTION.BREATHING TREATMENT JUST ADMINISTERED BY RT SCHEDULED.WITH KNOWN HX OF RIGHT LUMPECTOMY,SIGN ON HOB FOR NO BLOOD DRAW AND BLOOD PRESSURE CHECK ON RIGHT ARM.WITH SALINE LOCK LEFT WRIST INTACT AND PATENT.ISOLATION PRECAUTION FOR MRSA NARES,ON BACTROBAN.FAMILY MEMBERS AT BEDSIDE.CALL LIGHT IN REACH,NEEDS ANTICIPATED.
--- NOTE | 2018-05-30 19:45 | NUR ---
RN NOTES PATIENT REMAINS IN NO ACUTE DISTRESS IN BED. PT DID NOT HAVE ANY SIGNIFICANT CHANGE IN CONDITION DURING SHIFT. ALL NEEDS MET, ALL ORDERS CARRIED OUT. WILL ENDORSE FOR CONTINUITY OF CARE.
--- NOTE | 2018-05-30 21:03 | NUR ---
TELE1 RN NOTES ACCU-CHECK BLOOD SUGAR CHECK 197,REFUSED 3 UNIT INSULIN COVERAGE
[2018-05-30] MEDS: MUPIROCIN OINT 2% 22 GM TUBE SCH (21:17)
[2018-05-30] MEDS: *INSULIN REGULAR(HUMULIN R)HUM 100 UNIT/ML VIAL SQ PRN (21:30)
[2018-05-31] VITALS (8 sets, daily range): BP systolic 135–156; BP diastolic 57–65
--- NOTE | 2018-05-31 06:23 | NUR ---
TELE1 RN NOTES ON BED A/O X 2-3,NO SOB,BREATHING TREATMENT TOLERATED WELL.,RIGHT UPPER ARM AV SHUNT WITH GOOD THRILL AND BRUIT NOTED.DRESSING IN PLACE.CONTINUE CURRENT MEDS PER DR LIND,IF STABLE,NO FURTHER CARDIAC FOLLOW UP.IN NO ACUTE DISTRESS.WILL ENDORSE TO DAY NURSE FOR NICK.
[2018-05-31 07:11] LABS: BASOPHILS % (AUTO) 0.5 % (0.0-2.0); EOSINOPHILS % (AUTO) 3.5 % (0.0-6.0); HEMATOCRIT 28 % (33-45); HEMOGLOBIN 9.5 g/dL (11.5-14.8); LYMPHOCYTES # (AUTO) 1.3 /CMM (0.8-4.8); LYMPHOCYTES % (AUTO) 18.4 % (20.0-44.0); MEAN CORPUSCULAR HGB CONC 34 g/dl (31.0-36.0); MEAN CORPUSCULAR VOLUME 96 fL (82-100); MONOCYTES # (AUTO) 0.7 /CMM (0.1-1.30); MONOCYTES % (AUTO) 10.3 % (2.0-12.0); NEUTROPHILS # (AUTO) 4.8 /CMM (1.8-8.9); NEUTROPHILS % (AUTO) 67.3 % (43.0-81.0); PLATELET COUNT (AUTO) 136 /CMM (150-450); RED BLOOD CELL COUNT(AUTO) 2.92 MIL/uL (4.0-5.2); WHITE BLOOD COUNT (AUTO) 7.2 K/uL (4.3-11.0)
--- NOTE | 2018-05-31 07:15 | NUR ---
RN OPENING/TELE NOTES RECEIVED PT. IN BED A&OX4. BREATHING UNLABORED ON OXYGEN AT 2L/MIN VIA NASAL CANNULA. TELE MONITOR READING SINUS RHYTHM 60'S BPM. NO S/S OF ACUTE DISTRESS. IV ACCESS IS INTACT AND PATENT. DVT PUMPS ON. BED IS IN LOWEST, AND LOCKED POSITION. 2 SIDE RAILS UP, AND INSTRUCTED PT. TO USE CALL LIGHT FOR ASSISTANCE. ALL NEEDS MET. WILL CONTINUE TO ASSESS AND MONITOR.
[2018-05-31 07:17] LABS: CALCIUM, SERUM 7.6 mg/dL (8.5-10.1); CARBON DIOXIDE 27 mmol/L (21-32); CHLORIDE 103 mmol/L (98-107); GLUCOSE 97 mg/dL (74-106); PHOSPHORUS 5.3 mg/dL (2.5-4.9); SODIUM SERUM 140 mmol/L (136-145); UREA NITROGEN, BLOOD 53 mg/dL (7-18)
[2018-05-31] MEDS: ALBUTEROL FS 2.5 MG/3 ML VIAL.NEB NEB SCH ×4 (07:44→19:43)
[2018-05-31] MEDS: BLOOD SUGAR DIAGNOSTIC 1 EACH STRIP VI SCH ×4 (07:48→21:25)
[2018-05-31] MEDS: SEVELAMER CARBONATE 800 MG TABLET PO SCH ×3 (07:50→17:27)
[2018-05-31] MEDS: MUPIROCIN OINT 2% 22 GM TUBE SCH ×2 (09:02→21:09)
[2018-05-31] MEDS: LEVOFLOXACIN 500 MG /D5W 100ML 500 MG in PREMIX 1 EA IV SCH (09:03)
[2018-05-31] MEDS: LISINOPRIL (20MG) 20 MG TABLET PO SCH (09:17)
[2018-05-31] MEDS: hydrALAZINE HCL 50 MG TABLET PO SCH ×3 (09:18→17:31)
[2018-05-31] MEDS: AMLODIPINE BESYLATE 10 MG TABLET PO SCH (09:18)
[2018-05-31] MEDS: ISOSORBIDE MONONITRATE (30MG) 30 MG TAB.SR.24H PO SCH (09:18)
[2018-05-31] MEDS: HEPARIN SODIUM, PORCINE 5000 UNITS/1 ML VIAL SQ SCH ×2 (09:22→21:10)
[2018-05-31] MEDS ORDERED: LEVOFLOXACIN 500 MG /D5W 100ML 100 ML IV SCH (13:00)
--- NOTE | 2018-05-31 15:40 | NUR ---
PT RESFUSED RESP TX AT THIS TIME. FAMILY AT BEDSIDE. PT PRESENTS NO S/S OF SOB AT THIS TIME. WILL CONT TO MONITOR Addendum: 05/31/18 at 1541 by RAMIRO WALSH RT Amended: Links added.
[2018-05-31] MEDS: ATORVASTATIN 10 MG TABLET PO SCH (17:33)
--- NOTE | 2018-05-31 19:51 | NUR ---
RN CLOSING NOTES PT. IN BED A&OX4. BREATHING UNLABORED ON OXYGEN AT 2L/MIN VIA NASAL CANNULA. TELE MONITOR READING SINUS RHYTHM 60'S BPM. NO S/S OF ACUTE DISTRESS. IV ACCESS IS INTACT AND PATENT. DVT PUMPS ON. BED IS IN LOWEST, AND LOCKED POSITION. 2 SIDE RAILS UP, AND INSTRUCTED PT. TO USE CALL LIGHT FOR ASSISTANCE. ALL NEEDS MET. WILL ENDORSE REPORT.
--- NOTE | 2018-05-31 19:52 | NUR ---
TELE MONITORING WAS DISCONTINUED PER DR. LIND ORDERS.
--- NOTE | 2018-05-31 20:00 | NUR ---
ms rn notes received pts in bed a/o x4 able to make needs known .v/s stable afebrile no sob no distress noted , dues given as ordered all needs attended too call light within reach kept pts clean dry and comfortable. heplock on left wrist intact and patent, with right upper arm av shunt hd access noted with +thrill and bruit no bleeding noted .pts for hd cyndi .on contact isolation mrsa nares, precautionary measures observe at all times. safety measures maintained, will continue to monitor pts.
[2018-05-31] MEDS: *INSULIN REGULAR(HUMULIN R)HUM 100 UNIT/ML VIAL SQ PRN (21:27)
--- NOTE | 2018-05-31 22:00 | NUR ---
ms rn notes blood sugar for 10pm is 162 mg/dl no coverage given d/t pts refused insulin , r/b explained pts verbalized understanding pts still refused insulin, will continue to monitor pts.
[2018-06-01 04:00] VITALS: BP 154/66
--- NOTE | 2018-06-01 06:50 | NUR ---
ms rn notes pts in bed awake and responsive no sob no distress noted ,v/s stable afebrile , for hd today , pts remains on contact isolation mrsa nares precautionary measures observe,endorse to rn day shift for continuity of care.
[2018-06-01 07:32] LABS: BASOPHILS % (AUTO) 0.5 % (0.0-2.0); EOSINOPHILS % (AUTO) 5.3 % (0.0-6.0); HEMATOCRIT 26 % (33-45); LYMPHOCYTES # (AUTO) 1.3 /CMM (0.8-4.8); LYMPHOCYTES % (AUTO) 18.9 % (20.0-44.0); MEAN CORPUSCULAR HGB CONC 34 g/dl (31.0-36.0); MEAN CORPUSCULAR VOLUME 96 fL (82-100); MONOCYTES # (AUTO) 0.7 /CMM (0.1-1.30); MONOCYTES % (AUTO) 9.6 % (2.0-12.0); NEUTROPHILS # (AUTO) 4.6 /CMM (1.8-8.9); NEUTROPHILS % (AUTO) 65.7 % (43.0-81.0); PLATELET COUNT (AUTO) 132 /CMM (150-450); RED BLOOD CELL COUNT(AUTO) 2.75 MIL/uL (4.0-5.2)
[2018-06-01] MEDS: ALBUTEROL FS 2.5 MG/3 ML VIAL.NEB NEB SCH ×4 (07:46→20:01)
[2018-06-01 07:55] LABS: CALCIUM, SERUM 7.6 mg/dL (8.5-10.1); CARBON DIOXIDE 23 mmol/L (21-32); CHLORIDE 101 mmol/L (98-107); CREATININE 7.4 mg/dL (0.6-1.3); GLUCOSE 96 mg/dL (74-106); MAGNESIUM 2.1 mg/dL (1.8-2.4); PHOSPHORUS 5.9 mg/dL (2.5-4.9); POTASSIUM 5.4 mmol/L (3.5-5.1); SODIUM SERUM 137 mmol/L (136-145); UREA NITROGEN, BLOOD 70 mg/dL (7-18)
[2018-06-01 08:00] VITALS: BP 152/65
[2018-06-01 08:48] LABS: IRON, SERUM 60 ug/dl (50-175); TOTAL IRON BINDING CAPACITY 175 ug/dl (250-450)
[2018-06-01] MEDS: SEVELAMER CARBONATE 800 MG TABLET PO SCH ×3 (08:55→15:54)
[2018-06-01] MEDS: LISINOPRIL (20MG) 20 MG TABLET PO SCH (08:55)
[2018-06-01] MEDS: ISOSORBIDE MONONITRATE (30MG) 30 MG TAB.SR.24H PO SCH (08:55)
[2018-06-01] MEDS: HEPARIN SODIUM, PORCINE 5000 UNITS/1 ML VIAL SQ SCH ×2 (08:58→22:00)
[2018-06-01] MEDS: hydrALAZINE HCL 50 MG TABLET PO SCH ×3 (08:59→17:00)
[2018-06-01] MEDS: AMLODIPINE BESYLATE 10 MG TABLET PO SCH (08:59)
[2018-06-01 09:15] LABS: OCCULT BLOOD STOOL NEGATIVE (NEGATIVE)
[2018-06-01] MEDS: MUPIROCIN OINT 2% 22 GM TUBE SCH ×2 (09:27→22:01)
[2018-06-01] MEDS: BLOOD SUGAR DIAGNOSTIC 1 EACH STRIP VI SCH ×4 (09:27→22:08)
[2018-06-01] MEDS: *INSULIN REGULAR(HUMULIN R)HUM 100 UNIT/ML VIAL SQ PRN (09:28)
[2018-06-01 09:40] LABS: FERRITIN 1319 ng/mL (8-388)
[2018-06-01 12:00] VITALS: BP 152/65
--- NOTE | 2018-06-01 13:43 | NUR ---
1300 PT HAVING DIALYSIS MEDICATIONS HELD
[2018-06-01] MEDS: INSULIN REGULAR, HUMAN 100 UNIT/ML 3 ML VIAL SQ PRN ×2 (13:48→18:21)
[2018-06-01] MEDS: ATORVASTATIN 10 MG TABLET PO SCH (18:23)
--- NOTE | 2018-06-01 18:53 | NUR ---
SUMMARY PT REMAINS SAVE ALL SHIFT PULLED OUT PIV FROM LEFT HAND REPLACED WITH 20 G PIV IN POSTERIOR FOREARM OF PT ARM WRAPPED WITH KURL[place] FAMILY VISITING PT PT ATE ALL MEALS TODAY
[2018-06-01 20:00] VITALS: BP_SYST 151; BP_SYST 152; BP_DIAS 65; BP_DIAS 74
--- NOTE | 2018-06-01 20:00 | NUR ---
ms rn notes received pts in bed a/ox3 ,no sob no distress noted , v/s stable afebrile ,pts on 2 litrs of 02 via nasal canula sating 98% all due meds given as ordered , all needs attended too, call light within reach pts on r ua av shunt with +bruit and thrill no bleeding noted , kept pts clean dry and comfortable.will continue to monitor pts.
--- NOTE | 2018-06-01 22:00 | NUR ---
ms rn notes pts blood sugar for 10pm is 172 mg/dl coverage not given d/t pts refusal
[2018-06-02] MEDS: *INSULIN REGULAR(HUMULIN R)HUM 100 UNIT/ML VIAL SQ PRN (01:31)
[2018-06-02 04:00] VITALS: BP 152/65
--- NOTE | 2018-06-02 05:57 | NUR ---
ms rn notes pts in bed awake and comfortable no c/0 of pain ,v/s stable afebrile no sob no distress noted remains on contact isolation .mrsa nares precautionary measures observe at all time will indorse pts with rn day shift for continuityy of care.
[2018-06-02 07:30] LABS: BASOPHILS % (AUTO) 0.5 % (0.0-2.0); EOSINOPHILS % (AUTO) 4.4 % (0.0-6.0); HEMATOCRIT 28 % (33-45); HEMOGLOBIN 9.4 g/dL (11.5-14.8); LYMPHOCYTES # (AUTO) 1.4 /CMM (0.8-4.8); LYMPHOCYTES % (AUTO) 20.7 % (20.0-44.0); MEAN CORPUSCULAR HGB CONC 34 g/dl (31.0-36.0); MEAN CORPUSCULAR VOLUME 97 fL (82-100); MONOCYTES # (AUTO) 0.7 /CMM (0.1-1.30); MONOCYTES % (AUTO) 10.5 % (2.0-12.0); NEUTROPHILS # (AUTO) 4.3 /CMM (1.8-8.9); NEUTROPHILS % (AUTO) 63.9 % (43.0-81.0); PLATELET COUNT (AUTO) 123 /CMM (150-450); RED BLOOD CELL COUNT(AUTO) 2.87 MIL/uL (4.0-5.2); WHITE BLOOD COUNT (AUTO) 6.7 K/uL (4.3-11.0)
[2018-06-02] MEDS: BLOOD SUGAR DIAGNOSTIC 1 EACH STRIP VI SCH ×5 (07:30→22:00)
[2018-06-02] MEDS: ALBUTEROL FS 2.5 MG/3 ML VIAL.NEB NEB SCH ×4 (07:35→19:45)
--- NOTE | 2018-06-02 07:58 | NUR ---
PT REFUSED RESP TX AT THIS TIME. NO S/S OF SOB NOTED Addendum: 06/02/18 at 0758 by RAMIRO WALSH RT Amended: Links added.
[2018-06-02 08:00] VITALS: BP 150/72
[2018-06-02 08:24] LABS: CARBON DIOXIDE 28 mmol/L (21-32); CHLORIDE 104 mmol/L (98-107); CREATININE 6.4 mg/dL (0.6-1.3); GLUCOSE 99 mg/dL (74-106); MAGNESIUM 2.3 mg/dL (1.8-2.4); PHOSPHORUS 6.3 mg/dL (2.5-4.9); POTASSIUM 5.1 mmol/L (3.5-5.1); SODIUM SERUM 141 mmol/L (136-145); UREA NITROGEN, BLOOD 53 mg/dL (7-18)
[2018-06-02] MEDS: AMLODIPINE BESYLATE 10 MG TABLET PO SCH (09:08)
[2018-06-02] MEDS: hydrALAZINE HCL 50 MG TABLET PO SCH ×3 (09:09→16:27)
[2018-06-02] MEDS: LISINOPRIL (20MG) 20 MG TABLET PO SCH (09:09)
[2018-06-02] MEDS: SEVELAMER CARBONATE 800 MG TABLET PO SCH ×3 (09:09→16:45)
[2018-06-02] MEDS: HEPARIN SODIUM, PORCINE 5000 UNITS/1 ML VIAL SQ SCH ×2 (09:11→20:20)
[2018-06-02] MEDS: LEVOFLOXACIN 500 MG /D5W 100ML 500 MG in PREMIX 1 EA IV SCH (09:17)
[2018-06-02] MEDS: MUPIROCIN OINT 2% 22 GM TUBE SCH ×2 (09:18→20:21)
[2018-06-02] MEDS: ISOSORBIDE MONONITRATE (30MG) 30 MG TAB.SR.24H PO SCH (09:18)
[2018-06-02] MEDS: ATORVASTATIN 10 MG TABLET PO SCH (16:45)
[2018-06-02 17:00] VITALS: BP 130/62
[2018-06-02 20:00] VITALS: BP 146/62
--- NOTE | 2018-06-02 20:00 | NUR ---
RN NOTES PATIENT IS ALERT AND ORIENTED X3, ABLE TO MAKE NEEDS KNOWN, NO RESPIRATORY DISTRESS, ON ROOM AIR, SPO2 97, DENIES PAIN AT THIS TIME, CONTINUE CONTACT ISOLATION DUE TO MRSA NARES, BALJEET AV SHUNT, NO BLEEDING, BRUIT AND THRILL NOTED, KEPT SAFE AND COMFORTABLE, CALL LIGHT WITHIN REACH.
[2018-06-02 21:01] VITALS: BP 146/62
--- NOTE | 2018-06-02 22:00 | NUR ---
RN NOTES NO INSULIN GIVEN BG 118 MG/DL
[2018-06-03 04:20] VITALS: BP 169/70
--- NOTE | 2018-06-03 06:21 | NUR ---
RN NOTES PATIENT IS ALERT AND ORIENTED X3, DENIES ANY PAIN AT THIS TIME, NO DISTRESS, ON ROOM AIR, STABLE ON ROOM AIR, SLEPT FOR 6 HOURS, BM X1, IMPROVED LABS, CLEARED FOR DISCHARGE PER RESPIRATORY, PER CARDIO, CONTINUE ALL BP MEDS. WITH ORDER OF LABETALOL IV PRN IF SBP > 170.
[2018-06-03] MEDS: ALBUTEROL FS 2.5 MG/3 ML VIAL.NEB NEB SCH ×4 (06:57→19:30)
[2018-06-03] MEDS ORDERED: HYDR-4077 PO (07:37)
[2018-06-03 08:00] VITALS: BP 179/54
[2018-06-03] MEDS: SEVELAMER CARBONATE 800 MG TABLET PO SCH ×3 (08:00→18:00)
[2018-06-03] MEDS: LISINOPRIL (20MG) 20 MG TABLET PO SCH (09:00)
[2018-06-03] MEDS: HEPARIN SODIUM, PORCINE 5000 UNITS/1 ML VIAL SQ SCH (09:00)
[2018-06-03] MEDS: ISOSORBIDE MONONITRATE (30MG) 30 MG TAB.SR.24H PO SCH (09:00)
[2018-06-03] MEDS: AMLODIPINE BESYLATE 10 MG TABLET PO SCH (09:00)
[2018-06-03] MEDS: hydrALAZINE HCL 50 MG TABLET PO SCH ×3 (09:00→17:00)
[2018-06-03] MEDS: MUPIROCIN OINT 2% 22 GM TUBE SCH (09:00)
--- NOTE | 2018-06-03 12:40 | NUR ---
NURSING NOTES CALLED FACILITY SPOKE TO EMILY SPOKE TO HER REGUARDING PATIENT DISCHARGE. INFORMED HER THAT PATIENT WILL BE PICKED UP BY 3PM AND BACK TO THE FACILITY EMILY VERBALIZED UNDERSTANDING.
[2018-06-03] MEDS: BLOOD SUGAR DIAGNOSTIC 1 EACH STRIP VI SCH ×2 (12:44→18:19)
[2018-06-03 16:00] VITALS: BP 151/97
[2018-06-03] MEDS: ATORVASTATIN 10 MG TABLET PO SCH (18:00)
--- NOTE | 2018-06-03 19:11 | NUR ---
NURSING NOTES PATIENT HAD 2500 CC OUT FOR DIALYSIS.
--- NOTE | 2018-06-03 19:32 | NUR ---
PT IS DISCHARGED
== END 2018-06-03 23:00 | DRG 177 ==
LOC: ER 05:40 → ICU 08:20 → TELE1 05-30 17:17 → MEDSG1 05-31 16:43
PROVIDERS: ADMIT Internal Medicine; ATTEND Internal Medicine
PROC: 5A09357 Assistance with Respiratory Ventilation, Less than 24 Consecutive Hours, Continuous Positive Airway Pressure (ICD-10-PCS; principal; 2018-05-29)
PROC: 5A1D70Z Performance of Urinary Filtration, Intermittent, Less than 6 Hours Per Day (ICD-10-PCS; 2018-05-29)
PROC: 5A1D70Z Performance of Urinary Filtration, Intermittent, Less than 6 Hours Per Day (ICD-10-PCS; 2018-05-30)
PROC: 5A1D70Z Performance of Urinary Filtration, Intermittent, Less than 6 Hours Per Day (ICD-10-PCS; 2018-06-01)
PROC: 5A1D70Z Performance of Urinary Filtration, Intermittent, Less than 6 Hours Per Day (ICD-10-PCS; 2018-06-03)
DX: J15.6 Pneumonia due to other Gram-negative bacteria (principal); I50.33 Acute on chronic diastolic (congestive) heart failure; J96.01 Acute respiratory failure with hypoxia; N18.6 End stage renal disease; R53.2 Functional quadriplegia; I13.2 Hypertensive heart and chronic kidney disease with heart failure and with stage 5 chronic kidney disease, or end stage renal disease; I16.1 Hypertensive emergency; D68.59 Other primary thrombophilia; E44.1 Mild protein-calorie malnutrition; K21.9 Gastro-esophageal reflux disease without esophagitis; E11.22 Type 2 diabetes mellitus with diabetic chronic kidney disease; Z99.3 Dependence on wheelchair; Z99.2 Dependence on renal dialysis; Z87.891 Personal history of nicotine dependence; Z85.3 Personal history of malignant neoplasm of breast; Z83.3 Family history of diabetes mellitus; Z82.49 Family history of ischemic heart disease and other diseases of the circulatory system; I25.10 Atherosclerotic heart disease of native coronary artery without angina pectoris; E78.5 Hyperlipidemia, unspecified; Z88.4 Allergy status to anesthetic agent; Z88.0 Allergy status to penicillin; Z79.4 Long term (current) use of insulin; Z79.899 Other long term (current) drug therapy; G89.29 Other chronic pain; G35 Multiple sclerosis; Z96.649 Presence of unspecified artificial hip joint; Z90.49 Acquired absence of other specified parts of digestive tract; F32.9 Major depressive disorder, single episode, unspecified; D63.8 Anemia in other chronic diseases classified elsewhere; Z91.81 History of falling; J15.9 Unspecified bacterial pneumonia
CPT/HCPCS: 36415; 36600; 71045-TC; 80048-TC; 80061-TC; 80076-TC; 82272-TC; 82728-TC; 82962-TC; 83540-TC; 83735-TC; 83880; 84100-TC; 84484-TC; 85025-TC; 87081-TC; 90935-TC; 93307-TC; 94760-TC; A4216; G0378; J1644; J1815; J1940; J1956; J3490; J7050